=== PATIENT | female | born 1950 | race African-American/Black ===

== ENCOUNTER 2019-08-31 18:10 | Inpatient (IN) | payer OTHER ==
[~2019-08-31] VITALS: Ht 167.6 cm; Wt 69.6 kg
[~2019-08-31 18:10] MED LIST: INSULIN LISPRO (HIGH DOSE) 100 UNITS/ML SUBCUT SCH
[2019-08-31] MEDS ORDERED: ALBUTEROL (0.083%) 2.5MG/3ML NEB HHN STA (18:56)
[2019-08-31] MEDS ORDERED: SODIUM CHLORIDE 0.9% 1,000 ML IV ONE (18:56)
[2019-08-31] MEDS ORDERED: IPRATROPIUM BROMIDE (0.02%) 0.5MG/2.5ML NEB HHN STA (18:56)
[2019-08-31] MEDS ORDERED: NOREPINEPHRINE 4 MG in DEXT 5% WATER 246 ML IV ONE (19:30)
[2019-08-31 19:42] LABS: BASOPHILS % 0.7 % (0.0-2.0); HEMATOCRIT. 29.8 % (36.0-48.0); HEMOGLOBIN. 10.3 g/dL (12.0-16.0); LYMPHOCYTES % 17.4 % (20.0-50.0); MEAN CORPUSCULAR HEMOGLOBIN 34.3 pg (28.0-32.0); MEAN CORPUSCULAR VOLUME 99.3 fL (81.0-99.0); MEAN PLATELET VOLUME 9.6 fl (7.4-10.4); MONOCYTES % 8.9 % (2.0-8.0); PLATELET 191 x1000/uL (130-400)
[2019-08-31] MEDS ORDERED: NOREPINEPHRINE 4MG/250ML PMX 250 ML IV NR (19:45)
[2019-08-31 19:46] LABS: CHLORIDE 99 mEq/L (98-107)
[2019-08-31 20:10] LABS: BG BASE EXCESS -4.6 mmol/L (-2.0-2.0); BG BILEVEL POS AIRWAY PRESSURE S/T: 16/5; BG FRACTION INSPIRED OXYGEN 60; BG HCO3 ACT 18.7 mmol/L (22.0-26.0); BG PCO2 30.2 mmHg (35.0-45.0); BG PH 7.409 (7.350-7.450); BG PO2 46.5 mmHg (75.0-100.0); BG SAMPLE SITE RIGHT RADIAL; BG VENT MODE MASK - BIPAP; BG VENT RATE 18 set
[2019-08-31 20:22] LABS: INR 1.1; PROTHROMBIN TIME 11.4 sec (9.6-11.0)
[2019-08-31] MEDS ORDERED: VANCOMYCIN 1 G PREMIX 200 ML IV SCH ×2 (21:15→22:00)
[2019-08-31] MEDS ORDERED: INSULIN REGULAR (HUMULIN R) 300UNITS/3ML SUBCUT NR (21:15)
[2019-08-31] MEDS ORDERED: PIPERACILLIN/TAZOBACTAM 3.375GM/50ML PREMIX IV ONE (21:15)
[2019-08-31 21:21] LABS: CLARITY URINE CLEAR (CLEAR); COLOR URINE YELLOW (YELLOW); KETONES URINE NEGATIVE (NEGATIVE); LEUKOCYTE ESTERASE URINE NEGATIVE (NEGATIVE); NITRITE URINE NEGATIVE (NEGATIVE); OCCULT BLOOD URINE NEGATIVE (NEGATIVE); PH URINE >=9.0 (4.5-8.0); PROTEIN URINE 2+ (NEGATIVE); SPECIFIC GRAVITY URINE 1.011 (1.005-1.030); UROBILINOGEN URINE 0.2 E.U./dL (0.2-1.0)
[2019-08-31] MEDS ORDERED: PIPERACILLIN/TAZ 3.375G PREMIX 50 ML IV NR (21:30)
[2019-08-31] MEDS ORDERED: CLONIDINE 0.1MG TABLET PO PRN (22:30)
[2019-08-31] MEDS ORDERED: GUAIFENESIN 200MG/10ML SUGAR FREE UDC PO PRN (22:30)
[2019-08-31] MEDS ORDERED: ACETAMINOPHEN 325MG TABLET PO PRN (22:30)
[2019-08-31] MEDS ORDERED: IPRATROPIUM/ALBUTEROL 0.5-3(2.5)MG/3ML NEB NEB PRN (22:30)
[2019-08-31] MEDS ORDERED: ONDANSETRON HCL 4MG/2ML INJ IV PRN (22:30)
[2019-08-31] MEDS ORDERED: DOCUSATE SODIUM 100MG CAPSULE PO PRN (22:30)
[2019-08-31] MEDS ORDERED: PIPERACILLIN/TAZ 3.375G PREMIX 50 ML IV SCH (22:30)
[2019-08-31] MEDS ORDERED: HYDROCODONE/ACETAMINOPHEN 5/325MG TABLET PO PRN (22:30)
[2019-08-31] MEDS ORDERED: DEXTROSE 50% WATER 50ML SYRINGE IV PRN (23:45)
[2019-09-01] VITALS (50 sets, daily range): BP systolic 106–151; BP diastolic 35–74
[2019-09-01] MEDS ORDERED: INSULIN LISPRO (HIGH DOSE) 100 UNITS/ML SUBCUT SCH
[2019-09-01] MEDS ORDERED: BLOOD SUGAR DIAGNOSTIC STRIP TEST SCH
[2019-09-01 05:30] LABS: HEMATOCRIT. 30.8 % (36.0-48.0); HEMOGLOBIN. 10.7 g/dL (12.0-16.0); MEAN CORPUSCULAR HEMOGLOBIN 34.1 pg (28.0-32.0); MEAN CORPUSCULAR VOLUME 98.1 fL (81.0-99.0); MEAN PLATELET VOLUME 9.8 fl (7.4-10.4); PLATELET 188 x1000/uL (130-400); RED BLOOD CELL COUNT 3.14 mill/uL (4.2-5.4); RED CELL DISTRIBUTION WIDTH 14.9 % (11.6-14.6)
[2019-09-01 05:43] LABS: LDL CHOLESTEROL 55 mg/dL (5-100)
[2019-09-01 05:44] LABS: CREATINE KINASE 61 IU/L (26-192); HDL CHOLESTEROL 124 mg/dL (40-59)
[2019-09-01 05:46] LABS: CREATINE KINASE MB FRACTION < 1.0 ng/mL (0.5-3.6)
[2019-09-01] MEDS: BLOOD SUGAR DIAGNOSTIC STRIP TEST SCH ×4 (06:18→21:00)
[2019-09-01] MEDS: PIPERACILLIN/TAZOBACTAM 2.25 G in DEXTROSE 5% WATER 50 ML IV SCH ×3 (06:21→18:46)
[2019-09-01] MEDS: INSULIN LISPRO 100 UNITS/ML SUBCUT SCH ×4 (06:22→22:58)
[2019-09-01 08:25] LABS: PLATELET ESTIMATE NORMAL
[2019-09-01] MEDS: HEPARIN 5000 UNITS/ML VIAL SUBCUT SCH ×2 (08:35→22:19)
[2019-09-01] MEDS: ASPIRIN 81MG EC TABLET PO SCH ×2 (08:35→08:58)
[2019-09-01 09:45] LABS: *BARBITURATES SCREEN URINE NEGATIVE (NEGATIVE); *BENZODIAZEPINES SCREEN URINE NEGATIVE (NEGATIVE); *COCAINE SCREEN URINE NEGATIVE (NEGATIVE); METHADONE URINE SCREEN NEGATIVE (NEGATIVE)
[2019-09-01 09:46] LABS: *AMPHETAMINES SCREEN URINE NEGATIVE (NEGATIVE); CANNABINOID URINE SCREEN NEGATIVE (NEGATIVE); OPIATES URINE SCREEN NEGATIVE (NEGATIVE); PHENCYCLIDINE URINE SCREEN NEGATIVE (NEGATIVE)
[2019-09-01] MEDS ORDERED: VANCOMYCIN 500 MG PREMIX 100 ML IV NR (12:00)
[2019-09-01 12:58] LABS: BG BASE EXCESS -1.2 mmol/L (-2.0-2.0); BG CARBOXYHEMOGLOBIN 0.3 % (0.5-1.5); BG DEOXYHEMOGLOBIN 0.6 % (0.0-5.0); BG FRACTION INSPIRED OXYGEN 100; BG METHEMOGLOBIN 0.4 % (0.0-1.5); BG OXYGEN SATURATION 99.4 % (92.0-98.5); BG OXYHEMOGLOBIN 98.7 % (94.0-97.0); BG PH 7.508 (7.350-7.450); BG PO2 434.8 mmHg (75.0-100.0); BG SAMPLE SITE RIGHT RADIAL; BG TOTAL HEMOGLOBIN 10.5 g/dL (12.0-18.0); BG VENT MODE MASK - NRB
[2019-09-01] MEDS ORDERED: SODIUM CHLORIDE 3% FOR INH 4ML UD NEB INH NR (14:00)
[2019-09-01] MEDS: IPRATROPIUM/ALBUTEROL 0.5-3(2.5)MG/3ML NEB HHN SCH ×2 (14:09→20:49)
[2019-09-01] MEDS ORDERED: HYDR100T26 MT (14:17)
[2019-09-01] MEDS ORDERED: ALBU6.7H11 INH (14:17)
[2019-09-01] MEDS ORDERED: AMLO10TA80 PO (14:17)
[2019-09-01] MEDS ORDERED: ESOM20CA PO (14:17)
[2019-09-01] MEDS ORDERED: AZAT50TA18 PO (14:17)
[2019-09-01] MEDS ORDERED: LUTE1CAP5 MT (14:17)
[2019-09-01] MEDS ORDERED: FOLI0.4T2 PO (14:17)
[2019-09-01] MEDS ORDERED: INSU100I28 SQ (14:17)
[2019-09-01] MEDS ORDERED: NEPVIT MT (14:17)
[2019-09-01] MEDS ORDERED: ALBU6.7H9 INH (14:17)
[2019-09-01] MEDS ORDERED: MONT10TA21 MT (14:17)
[2019-09-01] MEDS ORDERED: FURO80TA87 MT (14:17)
[2019-09-01] MEDS ORDERED: INSLIS SUBCUT (14:17)
[2019-09-01] MEDS ORDERED: ATOR10TA69 PO (14:17)
[2019-09-01] MEDS ORDERED: DOCU50CA11 MT (14:17)
[2019-09-01] MEDS ORDERED: METO25TA6 MT (14:17)
[2019-09-01] MEDS ORDERED: PRED5TAB PO (14:17)
[2019-09-01] MEDS ORDERED: TOPUD PO (14:17)
[2019-09-01 15:44] LABS: CREATINE KINASE 112 IU/L (26-192)
[2019-09-01] MEDS ORDERED: IOHEXOL-350 100 ML BOTTLE ONE (15:44)
[2019-09-01 15:45] LABS: CREATINE KINASE MB FRACTION < 1.0 ng/mL (0.5-3.6)
[2019-09-01] MEDS ORDERED: INSULIN LISPRO 100 UNITS/ML SUBCUT SCH (16:30)
[2019-09-01] MEDS ORDERED: MONTELUKAST SODIUM 10MG TABLET PO SCH (17:00)
[2019-09-01] MEDS: HYDRALAZINE HCL 100MG TABLET PO SCH (17:00)
[2019-09-01] MEDS ORDERED: PREDNISONE 5MG TABLET PO SCH (18:15)
[2019-09-01] MEDS ORDERED: ATORVASTATIN CALCIUM 10MG TABLET PO SCH (21:00)
[2019-09-01] MEDS ORDERED: AMLODIPINE 10MG TABLET PO SCH (21:00)
[2019-09-01] MEDS ORDERED: INSULIN GLARGINE UD 100 UNITS/ML SYR SUBCUT SCH (22:00)
[2019-09-01] MEDS: METOPROLOL TARTRATE 25MG TABLET PO SCH (22:18)
[2019-09-01] MEDS: OMEPRAZOLE 20MG CAPSULE EXTENDED RELEASE PO SCH (22:18)
[2019-09-02] VITALS (26 sets, daily range): BP systolic 124–152; BP diastolic 45–94
[2019-09-02] MEDS: IPRATROPIUM/ALBUTEROL 0.5-3(2.5)MG/3ML NEB HHN SCH ×2 (01:43→08:16)
[2019-09-02 05:39] LABS: BASOPHILS % 0.7 % (0.0-2.0); EOSINOPHILS % 0.1 % (0.0-5.0); HEMATOCRIT. 28.5 % (36.0-48.0); HEMOGLOBIN. 9.9 g/dL (12.0-16.0); LYMPHOCYTES % 7.6 % (20.0-50.0); MEAN CORPUSCULAR HEMOGLOBIN 34.3 pg (28.0-32.0); MEAN CORPUSCULAR VOLUME 98.4 fL (81.0-99.0); MEAN PLATELET VOLUME 9.8 fl (7.4-10.4); NEUTROPHILS % 82.6 % (40.0-76.0); PLATELET 179 x1000/uL (130-400); RED BLOOD CELL COUNT 2.89 mill/uL (4.2-5.4); RED CELL DISTRIBUTION WIDTH 14.7 % (11.6-14.6)
[2019-09-02 05:53] LABS: PHOSPHORUS 4.3 mg/dL (2.5-4.9)
[2019-09-02 06:06] LABS: CORTISOL 6.9 ucg/dL; HEPATITIS B SURFACE AB 104.3 mIU/mL
[2019-09-02] MEDS: PIPERACILLIN/TAZOBACTAM 2.25 G in DEXTROSE 5% WATER 50 ML IV SCH ×2 (06:36→13:41)
[2019-09-02] MEDS: BLOOD SUGAR DIAGNOSTIC STRIP TEST SCH ×2 (06:37→11:33)
[2019-09-02] MEDS: INSULIN LISPRO 100 UNITS/ML SUBCUT SCH ×4 (06:48→11:52)
[2019-09-02] MEDS: OMEPRAZOLE 20MG CAPSULE EXTENDED RELEASE PO SCH (06:53)
[2019-09-02] MEDS: METOPROLOL TARTRATE 25MG TABLET PO SCH (07:52)
[2019-09-02] MEDS: HYDRALAZINE HCL 100MG TABLET PO SCH ×2 (07:53→13:41)
[2019-09-02] MEDS: ASPIRIN 81MG EC TABLET PO SCH (07:54)
[2019-09-02] MEDS: HEPARIN 5000 UNITS/ML VIAL SUBCUT SCH (07:55)
[2019-09-02] MEDS ORDERED: AMLODIPINE 10MG TABLET PO SCH (09:00)
[2019-09-02] MEDS ORDERED: PREDNISONE 5MG TABLET PO SCH (09:00)
[2019-09-02] MEDS ORDERED: FOLIC ACID 1MG TABLET PO SCH (09:00)
[2019-09-02] MEDS ORDERED: AZATHIOPRINE 50MG TABLET PO SCH (09:00)
[2019-09-02] MEDS ORDERED: FUROSEMIDE 40MG TABLET PO SCH (09:00)
== END 2019-09-02 15:36 | disposition home or self-care (01) | DRG 871 ==
LOC: ER 18:10 → MICUSO 22:02 → EDBEDREQTM 22:13 → EDBEDREQ 22:13 → ENRESERV 23:40
PROVIDERS: ADMIT Internal Medicine; ATTEND Internal Medicine
PROC: 5A09357 Assistance with Respiratory Ventilation, Less than 24 Consecutive Hours, Continuous Positive Airway Pressure (ICD-10-PCS; 2019-08-31)
PROC: 5A1D70Z Performance of Urinary Filtration, Intermittent, Less than 6 Hours Per Day (ICD-10-PCS; principal; 2019-09-01)
PROC: 5A09357 Assistance with Respiratory Ventilation, Less than 24 Consecutive Hours, Continuous Positive Airway Pressure (ICD-10-PCS; 2019-09-01)
DX: A41.9 Sepsis, unspecified organism (principal); J96.01 Acute respiratory failure with hypoxia; N18.6 End stage renal disease; J44.1 Chronic obstructive pulmonary disease with (acute) exacerbation; N25.81 Secondary hyperparathyroidism of renal origin; E87.2 Acidosis; I13.2 Hypertensive heart and chronic kidney disease with heart failure and with stage 5 chronic kidney disease, or end stage renal disease; R65.20 Severe sepsis without septic shock; J45.909 Unspecified asthma, uncomplicated; Z96.653 Presence of artificial knee joint, bilateral; E11.65 Type 2 diabetes mellitus with hyperglycemia; M19.90 Unspecified osteoarthritis, unspecified site; D53.9 Nutritional anemia, unspecified; I50.9 Heart failure, unspecified; I95.9 Hypotension, unspecified; E11.22 Type 2 diabetes mellitus with diabetic chronic kidney disease; M05.10 Rheumatoid lung disease with rheumatoid arthritis of unspecified site; Z79.52 Long term (current) use of systemic steroids; Z99.2 Dependence on renal dialysis; Z79.4 Long term (current) use of insulin; Z79.899 Other long term (current) drug therapy; Z82.49 Family history of ischemic heart disease and other diseases of the circulatory system; Z83.3 Family history of diabetes mellitus; Z88.8 Allergy status to other drugs, medicaments and biological substances
CPT/HCPCS: 36415; 36600; 71045; 71275; 80048; 80053; 80061; 80305; 81003; 82375; 82533; 82550; 82553; 82805; 82962; 83036; 83605; 83735; 83880; 84100; 84145; 84443; 84484; 85025; 86705; 86706; 86803; 87340; 93005; 93306; 93970; 94640; 94644; 94660; 99291; J1644; J1815; J2543; J3370; J3490; J7030; J7060; J7500; J7512; Q9967

== ENCOUNTER 2019-09-19 17:39 | Inpatient (IN) | payer OTHER ==
[~2019-09-19] VITALS: Ht 162.6 cm; Wt 61.2 kg
[~2019-09-19 17:39] MED LIST changes: +ALBU6.7H11 INH; +ALBU6.7H9 INH; +AMLO10TA80 PO; +ATOR10TA69 PO; +AZAT50TA18 PO; +DOCU50CA11 MT; +ESOM20CA PO; +FOLI0.4T2 PO; +FURO80TA87 MT; +HYDR100T26 MT; +INSLIS SUBCUT; +INSU100I28 SQ; -INSULIN LISPRO (HIGH DOSE) 100 UNITS/ML SUBCUT SCH; +LUTE1CAP5 MT; +METO25TA6 MT; +MONT10TA21 MT; +NEPVIT MT; +PRED5TAB PO; +TOPUD PO
[2019-09-19] MEDS ORDERED: IPRATROPIUM BROMIDE (0.02%) 0.5MG/2.5ML NEB HHN STA (17:59)
[2019-09-19] MEDS ORDERED: ALBUTEROL (0.083%) 2.5MG/3ML NEB HHN STA (17:59)
[2019-09-19] MEDS ORDERED: METHYLPREDNISOLONE SOD SUCC 125 MG/2 ML VIAL IV STA (17:59)
[2019-09-19] MEDS ORDERED: MAGNESIUM 2 G PREMIX 50 ML IV ONE (18:00)
[2019-09-19 18:35] LABS: BASOPHILS % 0.6 % (0.0-2.0); EOSINOPHILS % 0.2 % (0.0-5.0); HEMATOCRIT. 36.3 % (36.0-48.0); HEMOGLOBIN. 12.6 g/dL (12.0-16.0); LYMPHOCYTES % 9.9 % (20.0-50.0); MEAN CORPUSCULAR VOLUME 98.3 fL (81.0-99.0); MONOCYTES % 6.9 % (2.0-8.0); NEUTROPHILS % 82.4 % (40.0-76.0); PLATELET 244 x1000/uL (130-400); RED BLOOD CELL COUNT 3.69 mill/uL (4.2-5.4); RED CELL DISTRIBUTION WIDTH 15.1 % (11.6-14.6)
[2019-09-19 18:40] LABS: CHLORIDE 93 mEq/L (98-107)
[2019-09-19] MEDS ORDERED: FUROSEMIDE 100MG/10ML VIAL IVP ONE (19:45)
[2019-09-19 20:36] LABS: BG BASE EXCESS -4.8 mmol/L (-2.0-2.0); BG CARBOXYHEMOGLOBIN 0.3 % (0.5-1.5); BG DEOXYHEMOGLOBIN 1.9 % (0.0-5.0); BG FRACTION INSPIRED OXYGEN 28; BG HCO3 ACT 17.6 mmol/L (22.0-26.0); BG METHEMOGLOBIN 0.5 % (0.0-1.5); BG OXYGEN SATURATION 98.1 % (92.0-98.5); BG OXYHEMOGLOBIN 97.3 % (94.0-97.0); BG PCO2 25.2 mmHg (35.0-45.0); BG PH 7.461 (7.350-7.450); BG PO2 121.4 mmHg (75.0-100.0); BG SAMPLE SITE RIGHT RADIAL; BG TOTAL HEMOGLOBIN 11.6 g/dL (12.0-18.0); BG VENT MODE NASAL CANNULA
[2019-09-19] MEDS ORDERED: INSULIN LISPRO (HIGH DOSE) 100 UNITS/ML SUBCUT NR (22:30)
[2019-09-19 22:35] VITALS: BP 142/45
[2019-09-19] MEDS ORDERED: HYDROCODONE/ACETAMINOPHEN 5/325MG TABLET PO PRN (22:45)
[2019-09-19] MEDS ORDERED: ONDANSETRON HCL 4MG/2ML INJ IV PRN (22:45)
[2019-09-19] MEDS ORDERED: ACETAMINOPHEN 325MG TABLET PO PRN (22:45)
[2019-09-19] MEDS ORDERED: IPRATROPIUM/ALBUTEROL 0.5-3(2.5)MG/3ML NEB NEB PRN (22:45)
[2019-09-19] MEDS ORDERED: DOCUSATE SODIUM 100MG CAPSULE PO PRN (22:45)
[2019-09-19] MEDS ORDERED: CLONIDINE 0.1MG TABLET PO PRN (22:45)
[2019-09-19] MEDS ORDERED: DEXTROSE 50% WATER 50ML SYRINGE IV PRN (23:30)
[2019-09-20] VITALS: BP 120/38
[2019-09-20] MEDS: INSULIN LISPRO 100 UNITS/ML SUBCUT SCH ×8 (00:09→21:28)
[2019-09-20] MEDS: INSULIN GLARGINE UD 100 UNITS/ML SYR SUBCUT SCH ×2 (00:13→22:11)
[2019-09-20 02:47] LABS: *AMPHETAMINES SCREEN URINE NEGATIVE (NEGATIVE); *BARBITURATES SCREEN URINE NEGATIVE (NEGATIVE); *BENZODIAZEPINES SCREEN URINE NEGATIVE (NEGATIVE); *COCAINE SCREEN URINE NEGATIVE (NEGATIVE); CANNABINOID URINE SCREEN NEGATIVE (NEGATIVE); OPIATES URINE SCREEN NEGATIVE (NEGATIVE); PHENCYCLIDINE URINE SCREEN NEGATIVE (NEGATIVE)
[2019-09-20 02:48] LABS: METHADONE URINE SCREEN NEGATIVE (NEGATIVE)
[2019-09-20 04:00] VITALS: BP 114/41
[2019-09-20 04:58] LABS: EOSINOPHILS % 0.4 % (0.0-5.0); HEMATOCRIT. 28.7 % (36.0-48.0); HEMOGLOBIN. 10.1 g/dL (12.0-16.0); LYMPHOCYTES % 12.5 % (20.0-50.0); MEAN PLATELET VOLUME 8.8 fl (7.4-10.4); MONOCYTES % 13.4 % (2.0-8.0); NEUTROPHILS % 72.7 % (40.0-76.0); PLATELET 217 x1000/uL (130-400); RED BLOOD CELL COUNT 2.96 mill/uL (4.2-5.4); RED CELL DISTRIBUTION WIDTH 14.7 % (11.6-14.6)
[2019-09-20 05:48] LABS: CHLORIDE 95 mEq/L (98-107)
[2019-09-20] MEDS ORDERED: METHYLPREDNISOLONE SOD SUCC 40 MG/ML VIAL IV SCH (06:00)
[2019-09-20 06:08] LABS: CREATINE KINASE 85 IU/L (26-192); HDL CHOLESTEROL 128 mg/dL (40-59); LDL CHOLESTEROL 57 mg/dL (5-100)
[2019-09-20 06:10] LABS: CREATINE KINASE MB FRACTION < 1.0 ng/mL (0.5-3.6)
[2019-09-20] MEDS: BLOOD SUGAR DIAGNOSTIC STRIP TEST SCH ×4 (07:40→21:26)
[2019-09-20 08:00] VITALS: BP 120/44
[2019-09-20] MEDS: HEPARIN 5000 UNITS/ML VIAL SUBCUT SCH ×2 (08:31→21:26)
[2019-09-20] MEDS: BUDESONIDE 0.5MG/2ML NEB HHN SCH ×2 (09:00→23:00)
[2019-09-20 12:00] VITALS: BP_SYST 105; BP_SYST 122; BP_DIAS 42; BP_DIAS 50
[2019-09-20 15:41] LABS: CREATINE KINASE 103 IU/L (26-192)
[2019-09-20 15:42] LABS: CREATINE KINASE MB FRACTION < 1.0 ng/mL (0.5-3.6)
[2019-09-20 16:00] VITALS: BP 125/74
[2019-09-20] MEDS: AMLODIPINE 10MG TABLET PO SCH (16:00)
[2019-09-20] MEDS: MONTELUKAST SODIUM 10MG TABLET PO SCH (16:27)
[2019-09-20] MEDS: ATORVASTATIN CALCIUM 10MG TABLET PO SCH (16:27)
[2019-09-20] MEDS: FOLIC ACID/VITAMIN B COMP W-C TABLET PO SCH (16:27)
[2019-09-20] MEDS: HYDRALAZINE HCL 100MG TABLET PO SCH (16:28)
[2019-09-20] MEDS: AZATHIOPRINE 50MG TABLET PO SCH (16:28)
[2019-09-20] MEDS ORDERED: SENNOSIDES 8.6MG TABLET PO PRN (17:45)
[2019-09-20 20:00] VITALS: BP 135/49
[2019-09-20] MEDS ORDERED: FAMOTIDINE 20MG TABLET PO SCH (21:00)
[2019-09-20] MEDS ORDERED: DOCUSATE SODIUM 100MG CAPSULE PO SCH (21:00)
[2019-09-20] MEDS: FLUTICASONE PROPIONATE 50MCG/SPRAY BOTTLE BOTHNSTRLS SCH (21:26)
[2019-09-21] VITALS: BP 137/55
[2019-09-21 04:00] VITALS: BP 144/52
[2019-09-21] MEDS: BLOOD SUGAR DIAGNOSTIC STRIP TEST SCH ×3 (06:29→17:40)
[2019-09-21 07:13] LABS: CHLORIDE 97 mEq/L (98-107)
[2019-09-21 07:16] LABS: BASOPHILS % 0.6 % (0.0-2.0); EOSINOPHILS % 0.6 % (0.0-5.0); HEMATOCRIT. 30.6 % (36.0-48.0); HEMOGLOBIN. 10.6 g/dL (12.0-16.0); LYMPHOCYTES % 14.7 % (20.0-50.0); MEAN CORPUSCULAR HEMOGLOBIN 33.7 pg (28.0-32.0); MEAN CORPUSCULAR VOLUME 97.2 fL (81.0-99.0); MEAN PLATELET VOLUME 9.5 fl (7.4-10.4); MONOCYTES % 8.8 % (2.0-8.0); NEUTROPHILS % 75.3 % (40.0-76.0); PLATELET 237 x1000/uL (130-400); RED BLOOD CELL COUNT 3.15 mill/uL (4.2-5.4); RED CELL DISTRIBUTION WIDTH 15.4 % (11.6-14.6)
[2019-09-21 07:20] LABS: PHOSPHORUS 4.6 mg/dL (2.5-4.9)
[2019-09-21] MEDS: FOLIC ACID/VITAMIN B COMP W-C TABLET PO SCH (07:59)
[2019-09-21 08:00] VITALS: BP 141/53
[2019-09-21] MEDS: AZATHIOPRINE 50MG TABLET PO SCH (08:00)
[2019-09-21] MEDS: INSULIN LISPRO 100 UNITS/ML SUBCUT SCH ×5 (08:00→17:40)
[2019-09-21] MEDS: HEPARIN 5000 UNITS/ML VIAL SUBCUT SCH (08:02)
[2019-09-21] MEDS: HYDRALAZINE HCL 100MG TABLET PO SCH ×3 (08:27→17:00)
[2019-09-21] MEDS: AMLODIPINE 10MG TABLET PO SCH (08:27)
[2019-09-21] MEDS: FLUTICASONE PROPIONATE 50MCG/SPRAY BOTTLE BOTHNSTRLS SCH (08:57)
[2019-09-21] MEDS ORDERED: PREDNISONE 5MG TABLET PO SCH (09:00)
[2019-09-21 09:30] VITALS: BP 162/46
[2019-09-21 12:00] VITALS: BP 142/63
[2019-09-21] MEDS: ATORVASTATIN CALCIUM 10MG TABLET PO SCH (13:03)
[2019-09-21] MEDS ORDERED: FAMO20TA8 PO (15:16)
[2019-09-21] MEDS ORDERED: FLUT9.9S BOTHNSTRLS (15:16)
[2019-09-21 16:00] VITALS: BP 121/52
[2019-09-21] MEDS: MONTELUKAST SODIUM 10MG TABLET PO SCH (17:00)
== END 2019-09-21 17:54 | disposition home or self-care (01) | DRG 189 ==
LOC: ER 17:39 → EDBEDREQTM 19:55 → EDBEDREQ 19:55 → ENRESERV 21:18 → 7WST 22:36
PROVIDERS: ADMIT Internal Medicine; ATTEND Internal Medicine
PROC: 5A1D70Z Performance of Urinary Filtration, Intermittent, Less than 6 Hours Per Day (ICD-10-PCS; principal; 2019-09-20)
DX: J96.01 Acute respiratory failure with hypoxia (principal); N18.6 End stage renal disease; J44.0 Chronic obstructive pulmonary disease with (acute) lower respiratory infection; I12.0 Hypertensive chronic kidney disease with stage 5 chronic kidney disease or end stage renal disease; D63.1 Anemia in chronic kidney disease; D72.810 Lymphocytopenia; E11.22 Type 2 diabetes mellitus with diabetic chronic kidney disease; E11.43 Type 2 diabetes mellitus with diabetic autonomic (poly)neuropathy; E78.5 Hyperlipidemia, unspecified; J20.9 Acute bronchitis, unspecified; K31.84 Gastroparesis; D72.821 Monocytosis (symptomatic); E11.65 Type 2 diabetes mellitus with hyperglycemia; E78.00 Pure hypercholesterolemia, unspecified; E21.3 Hyperparathyroidism, unspecified; M05.10 Rheumatoid lung disease with rheumatoid arthritis of unspecified site; M06.30 Rheumatoid nodule, unspecified site; J30.2 Other seasonal allergic rhinitis; Z95.820 Peripheral vascular angioplasty status with implants and grafts; Z83.3 Family history of diabetes mellitus; Z82.49 Family history of ischemic heart disease and other diseases of the circulatory system; Z99.2 Dependence on renal dialysis; Z79.52 Long term (current) use of systemic steroids; Z79.4 Long term (current) use of insulin; Z79.899 Other long term (current) drug therapy
CPT/HCPCS: 36415; 36600; 71045; 80048; 80053; 80061; 80305; 82375; 82550; 82553; 82805; 82962; 83036; 83735; 83880; 84100; 84484; 85025; 93005; 94640; 99285; J1644; J1815; J1940; J2920; J2930; J3475; J7500; J7512; J7626

== ENCOUNTER 2019-09-28 17:15 | Emergency (ER) | payer OTHER ==
[~2019-09-28] VITALS: Ht 170.2 cm; Wt 72.0 kg
[~2019-09-28 17:15] MED LIST changes: -ALBU6.7H9 INH; -ESOM20CA PO; +FAMO20TA8 PO; +FLUT9.9S BOTHNSTRLS; -FOLI0.4T2 PO; -LUTE1CAP5 MT
[2019-09-28] MEDS ORDERED: ONDANSETRON HCL 4MG/2ML INJ IV STA (18:14)
[2019-09-28] MEDS ORDERED: METOCLOPRAMIDE HCL 10MG/2ML VIAL IV STA (18:14)
[2019-09-28] MEDS ORDERED: SODIUM CHLORIDE 0.9% 1000ML BAG (SEPSIS BOLUS) IV ONE (18:15)
[2019-09-28 19:26] LABS: HEMATOCRIT. 41.1 % (36.0-48.0); HEMOGLOBIN. 14.1 g/dL (12.0-16.0); MEAN CORPUSCULAR HEMOGLOBIN 33.7 pg (28.0-32.0); MEAN CORPUSCULAR VOLUME 98.4 fL (81.0-99.0); MEAN PLATELET VOLUME 8.6 fl (7.4-10.4); PLATELET 204 x1000/uL (130-400); RED BLOOD CELL COUNT 4.18 mill/uL (4.2-5.4); RED CELL DISTRIBUTION WIDTH 14.8 % (11.6-14.6)
[2019-09-28 19:28] LABS: CHLORIDE 94 mEq/L (98-107); PROTHROMBIN TIME 10.7 sec (9.6-11.0)
[2019-09-28 19:32] LABS: ETHANOL BLOOD < 10 mg/dL
[2019-09-28 20:16] LABS: PLATELET ESTIMATE NORMAL
[2019-09-28 20:45] VITALS: BP 135/74
== END 2019-09-28 20:45 | disposition home or self-care (01) ==
LOC: ER 17:15 → CANBEDREQ 21:08
DX: R10.13 Epigastric pain (principal); J44.9 Chronic obstructive pulmonary disease, unspecified; I12.0 Hypertensive chronic kidney disease with stage 5 chronic kidney disease or end stage renal disease; N18.6 End stage renal disease; E78.00 Pure hypercholesterolemia, unspecified; Z88.6 Allergy status to analgesic agent; Z88.8 Allergy status to other drugs, medicaments and biological substances; Z79.899 Other long term (current) drug therapy; Z79.4 Long term (current) use of insulin; Z98.890 Other specified postprocedural states; Z99.2 Dependence on renal dialysis; Z91.15 Patient's noncompliance with renal dialysis
CPT/HCPCS: 36415; 71045; 74176; 80053; 80320; 83690; 83880; 84484; 85025; 85610; 93005; 96361; 96374; 96375; 99285; J2405; J2765; J7030; G0480

== ENCOUNTER 2020-01-13 17:45 | Inpatient (IN) | payer OTHER ==
[~2020-01-13] VITALS: Ht 167.6 cm; Wt 53.1 kg
[2020-01-13] MEDS ORDERED: CALCIUM GLUCONATE 100MG/ML 10ML VIAL IV ONE (18:30)
[2020-01-13 19:54] LABS: BASOPHILS % 0.5 % (0.0-2.0); EOSINOPHILS % 0.1 % (0.0-5.0); HEMOGLOBIN. 12.5 g/dL (12.0-16.0); LYMPHOCYTES % 7.2 % (20.0-50.0); MEAN CORPUSCULAR HEMOGLOBIN 33.1 pg (28.0-32.0); MEAN CORPUSCULAR VOLUME 98.3 fL (81.0-99.0); MEAN PLATELET VOLUME 9.3 fl (7.4-10.4); MONOCYTES % 9.2 % (2.0-8.0); PLATELET 166 x1000/uL (130-400); RED BLOOD CELL COUNT 3.77 mill/uL (4.2-5.4); RED CELL DISTRIBUTION WIDTH 14.7 % (11.6-14.6)
[2020-01-13 20:01] LABS: CHLORIDE 96 mEq/L (98-107)
[2020-01-13 23:04] VITALS: BP 159/50
[2020-01-14] VITALS: BP 151/50
[2020-01-14] MEDS ORDERED: DEXTROSE 50% WATER 50ML SYRINGE IV PRN (01:00)
[2020-01-14] MEDS ORDERED: ALBUTEROL 6.7GM HFA INHALER ORI PRN (01:00)
[2020-01-14] MEDS ORDERED: HYDROCODONE/ACETAMINOPHEN 5/325MG TABLET PO PRN (01:00)
[2020-01-14] MEDS ORDERED: ALBUTEROL (0.083%) 2.5MG/3ML NEB HHN PRN (02:15)
[2020-01-14] MEDS: PANTOPRAZOLE 40MG DR TABLET PO SCH ×3 (02:43→21:42)
[2020-01-14] MEDS: INSULIN LISPRO 100 UNITS/ML SUBCUT SCH ×5 (02:51→21:00)
[2020-01-14 05:02] VITALS: BP 131/42
[2020-01-14] MEDS: HYDRALAZINE HCL 100MG TABLET PO SCH ×5 (06:00→21:51)
[2020-01-14] MEDS: BLOOD SUGAR DIAGNOSTIC STRIP TEST SCH ×4 (06:45→21:42)
[2020-01-14 07:16] LABS: PHOSPHORUS 3.9 mg/dL (2.5-4.9)
[2020-01-14 08:00] VITALS: BP 117/41
[2020-01-14 08:09] LABS: HEMATOCRIT. 31.5 % (36.0-48.0); MEAN CORPUSCULAR HEMOGLOBIN 34.2 pg (28.0-32.0); MEAN CORPUSCULAR VOLUME 97.9 fL (81.0-99.0); MEAN PLATELET VOLUME 9.7 fl (7.4-10.4); PLATELET 148 x1000/uL (130-400); RED BLOOD CELL COUNT 3.22 mill/uL (4.2-5.4); RED CELL DISTRIBUTION WIDTH 14.8 % (11.6-14.6)
[2020-01-14] MEDS ORDERED: METOPROLOL TARTRATE 50MG TABLET PO SCH (09:00)
[2020-01-14] MEDS: FUROSEMIDE 40MG TABLET PO SCH (09:03)
[2020-01-14] MEDS: PREDNISONE 5MG TABLET PO SCH (09:03)
[2020-01-14] MEDS: DOCUSATE SODIUM 100MG CAPSULE PO SCH (09:03)
[2020-01-14] MEDS: FOLIC ACID/VITAMIN B COMP W-C TABLET PO SCH (09:03)
[2020-01-14] MEDS: AMLODIPINE 10MG TABLET PO SCH (09:04)
[2020-01-14] MEDS: AZATHIOPRINE 50MG TABLET PO SCH (09:06)
[2020-01-14] MEDS ORDERED: INSULIN GLARGINE UD 100 UNITS/ML SYR SUBCUT SCH ×2 (10:00→22:00)
[2020-01-14] MEDS: ASPIRIN 81MG TABLET PO NR ×2 (11:05→11:13)
[2020-01-14 12:00] VITALS: BP 115/45
[2020-01-14] MEDS ORDERED: IPRATROPIUM/ALBUTEROL 0.5-3(2.5)MG/3ML NEB HHN PRN (13:30)
[2020-01-14 16:00] VITALS: BP 114/43
[2020-01-14 17:02] LABS: PLATELET ESTIMATE NORMAL
[2020-01-14] MEDS: MONTELUKAST SODIUM 10MG TABLET PO SCH (17:33)
[2020-01-14 20:00] VITALS: BP 122/47
[2020-01-14] MEDS: ENOXAPARIN 30MG/0.3ML SYR SUBCUT SCH (20:49)
[2020-01-14] MEDS: METOPROLOL TARTRATE 25MG TABLET PO SCH (21:41)
[2020-01-14] MEDS: ATORVASTATIN CALCIUM 40MG TABLET PO SCH (21:42)
[2020-01-14] MEDS: BUDESONIDE 0.5MG/2ML NEB HHN SCH (21:52)
[2020-01-15] VITALS: BP 118/52
[2020-01-15 04:00] VITALS: BP 130/47
[2020-01-15] MEDS: HYDRALAZINE HCL 100MG TABLET PO SCH ×3 (05:01→22:18)
[2020-01-15] MEDS: PANTOPRAZOLE 40MG DR TABLET PO SCH ×2 (05:58→22:18)
[2020-01-15] MEDS: INSULIN LISPRO 100 UNITS/ML SUBCUT SCH ×4 (06:01→22:32)
[2020-01-15] MEDS: BLOOD SUGAR DIAGNOSTIC STRIP TEST SCH ×4 (06:01→21:00)
[2020-01-15] MEDS ORDERED: MORPHINE SULFATE 2 MG/ML CPJ (NOT FOR IM USE) IV PRN (06:09)
[2020-01-15 07:56] LABS: BASOPHILS % 0.6 % (0.0-2.0); EOSINOPHILS % 0.7 % (0.0-5.0); HEMATOCRIT. 35.2 % (36.0-48.0); HEMOGLOBIN. 12.2 g/dL (12.0-16.0); LYMPHOCYTES % 17.3 % (20.0-50.0); MEAN CORPUSCULAR HEMOGLOBIN 33.8 pg (28.0-32.0); MEAN CORPUSCULAR VOLUME 97.6 fL (81.0-99.0); MEAN PLATELET VOLUME 9.6 fl (7.4-10.4); MONOCYTES % 9.7 % (2.0-8.0); NEUTROPHILS % 71.7 % (40.0-76.0); PLATELET 146 x1000/uL (130-400)
[2020-01-15 08:00] VITALS: BP 129/51
[2020-01-15 08:26] LABS: CHLORIDE 98 mEq/L (98-107)
[2020-01-15] MEDS ORDERED: TRAMADOL 50MG TABLET PO PRN (08:30)
[2020-01-15] MEDS: AMLODIPINE 10MG TABLET PO SCH (08:32)
[2020-01-15] MEDS: DOCUSATE SODIUM 100MG CAPSULE PO SCH (08:32)
[2020-01-15] MEDS: FOLIC ACID/VITAMIN B COMP W-C TABLET PO SCH (08:32)
[2020-01-15 08:33] LABS: PHOSPHORUS 4.6 mg/dL (2.5-4.9)
[2020-01-15] MEDS: FUROSEMIDE 40MG TABLET PO SCH (08:33)
[2020-01-15] MEDS: PREDNISONE 5MG TABLET PO SCH (08:33)
[2020-01-15] MEDS: METOPROLOL TARTRATE 25MG TABLET PO SCH ×2 (08:33→22:19)
[2020-01-15] MEDS: AZATHIOPRINE 50MG TABLET PO SCH (08:33)
[2020-01-15] MEDS: BUDESONIDE 0.5MG/2ML NEB HHN SCH ×2 (08:49→20:56)
[2020-01-15] MEDS ORDERED: ASPIRIN 81MG TABLET PO SCH (09:00)
[2020-01-15] MEDS ORDERED: ENOXAPARIN 40MG/0.4ML SYR SUBCUT SCH (09:00)
[2020-01-15] MEDS ORDERED: CHLORHEXIDINE GLUCONATE 0.12% MOUTHWASH UDC SSP PRN (11:30)
[2020-01-15] MEDS: ACETAMINOPHEN 500MG TABLET PO PRN ×2 (11:55→22:35)
[2020-01-15 12:00] VITALS: BP 136/80
[2020-01-15] MEDS ORDERED: BISACODYL 10MG SUPP PR NR (12:15)
[2020-01-15 16:00] VITALS: BP 117/43
[2020-01-15] MEDS: MONTELUKAST SODIUM 10MG TABLET PO SCH (17:06)
[2020-01-15 20:00] VITALS: BP 148/58
[2020-01-15] MEDS: ATORVASTATIN CALCIUM 40MG TABLET PO SCH (22:18)
[2020-01-15] MEDS: ENOXAPARIN 30MG/0.3ML SYR SUBCUT SCH ×2 (22:18→22:46)
[2020-01-16] VITALS: BP 113/66
[2020-01-16 04:00] VITALS: BP 119/43
[2020-01-16] MEDS: HYDRALAZINE HCL 100MG TABLET PO SCH ×2 (06:48→13:58)
[2020-01-16] MEDS: PANTOPRAZOLE 40MG DR TABLET PO SCH (06:48)
[2020-01-16] MEDS: BLOOD SUGAR DIAGNOSTIC STRIP TEST SCH ×2 (06:50→11:41)
[2020-01-16] MEDS: INSULIN LISPRO 100 UNITS/ML SUBCUT SCH ×2 (06:50→11:46)
[2020-01-16 07:57] VITALS: BP 127/47
[2020-01-16] MEDS: FOLIC ACID/VITAMIN B COMP W-C TABLET PO SCH (08:40)
[2020-01-16] MEDS: DOCUSATE SODIUM 100MG CAPSULE PO SCH (08:40)
[2020-01-16] MEDS: AMLODIPINE 10MG TABLET PO SCH (08:41)
[2020-01-16] MEDS: METOPROLOL TARTRATE 25MG TABLET PO SCH (08:41)
[2020-01-16] MEDS: AZATHIOPRINE 50MG TABLET PO SCH (08:41)
[2020-01-16] MEDS: PREDNISONE 5MG TABLET PO SCH (08:41)
[2020-01-16] MEDS: FUROSEMIDE 40MG TABLET PO SCH (08:41)
[2020-01-16 08:52] LABS: BASOPHILS % 1.2 % (0.0-2.0); EOSINOPHILS % 0.6 % (0.0-5.0); HEMATOCRIT. 34.4 % (36.0-48.0); HEMOGLOBIN. 12.1 g/dL (12.0-16.0); LYMPHOCYTES % 18.4 % (20.0-50.0); MEAN CORPUSCULAR VOLUME 96.5 fL (81.0-99.0); MEAN PLATELET VOLUME 9.8 fl (7.4-10.4); MONOCYTES % 8.7 % (2.0-8.0); NEUTROPHILS % 71.1 % (40.0-76.0); PLATELET 143 x1000/uL (130-400); RED BLOOD CELL COUNT 3.56 mill/uL (4.2-5.4); RED CELL DISTRIBUTION WIDTH 14.4 % (11.6-14.6)
[2020-01-16] MEDS: BUDESONIDE 0.5MG/2ML NEB HHN SCH (09:10)
[2020-01-16 09:30] VITALS: BP 127/47
[2020-01-16 12:00] VITALS: BP 135/47
[2020-01-16] MEDS ORDERED: INSULIN GLARGINE UD 100 UNITS/ML SYR SUBCUT NR (16:00)
== END 2020-01-16 15:31 | disposition home or self-care (01) | DRG 205 ==
LOC: ER 17:45 → 5WST 20:51 → ENRESERV 21:18
PROVIDERS: ADMIT Internal Medicine; ATTEND Internal Medicine
PROC: 5A1D70Z Performance of Urinary Filtration, Intermittent, Less than 6 Hours Per Day (ICD-10-PCS; principal; 2020-01-15)
DX: M94.0 Chondrocostal junction syndrome [Tietze] (principal); J96.00 Acute respiratory failure, unspecified whether with hypoxia or hypercapnia; N18.6 End stage renal disease; I12.0 Hypertensive chronic kidney disease with stage 5 chronic kidney disease or end stage renal disease; E87.1 Hypo-osmolality and hyponatremia; E11.22 Type 2 diabetes mellitus with diabetic chronic kidney disease; M06.9 Rheumatoid arthritis, unspecified; J44.9 Chronic obstructive pulmonary disease, unspecified; R55 Syncope and collapse; K05.10 Chronic gingivitis, plaque induced; E87.8 Other disorders of electrolyte and fluid balance, not elsewhere classified; R00.1 Bradycardia, unspecified; E78.5 Hyperlipidemia, unspecified; E21.3 Hyperparathyroidism, unspecified; K31.84 Gastroparesis; K59.00 Constipation, unspecified; E11.43 Type 2 diabetes mellitus with diabetic autonomic (poly)neuropathy; K21.9 Gastro-esophageal reflux disease without esophagitis; R07.89 Other chest pain; I95.9 Hypotension, unspecified; I07.1 Rheumatic tricuspid insufficiency; D64.9 Anemia, unspecified; Z80.0 Family history of malignant neoplasm of digestive organs; Z82.49 Family history of ischemic heart disease and other diseases of the circulatory system; Z83.3 Family history of diabetes mellitus; Z99.2 Dependence on renal dialysis; Z79.4 Long term (current) use of insulin; Z88.5 Allergy status to narcotic agent; Z88.8 Allergy status to other drugs, medicaments and biological substances; Z79.899 Other long term (current) drug therapy
CPT/HCPCS: 36415; 71045; 80048; 80053; 80061; 82962; 83036; 83735; 83880; 84100; 84484; 85025; 93005; 93306; 94640; 99285; J0610; J1650; J1815; J2270; J7500; J7512; J7626

== ENCOUNTER 2020-02-17 18:36 | Inpatient (IN) | payer OTHER ==
[~2020-02-17] VITALS: Ht 167.6 cm; Wt 57.6 kg
[2020-02-17] MEDS ORDERED: SODIUM CHLORIDE 0.9% 250 ML IV ONE (18:39)
[2020-02-17] MEDS ORDERED: IPRATROPIUM BROMIDE (0.02%) 0.5MG/2.5ML NEB HHN STA (18:39)
[2020-02-17] MEDS ORDERED: ALBUTEROL (0.083%) 2.5MG/3ML NEB HHN STA (18:39)
[2020-02-17] MEDS ORDERED: ASPIRIN 81MG TABLET PO ONE (19:00)
[2020-02-17] MEDS ORDERED: ONDANSETRON HCL 4MG/2ML INJ IV ONE ×2 (19:00)
[2020-02-17] MEDS ORDERED: PIPERACILLIN/TAZOBACTAM 3.375GM/50ML PREMIX IV ONE (19:00)
[2020-02-17 19:19] LABS: BASOPHILS % 0.3 % (0.0-2.0); EOSINOPHILS % 0.1 % (0.0-5.0); HEMATOCRIT. 28.2 % (36.0-48.0); HEMOGLOBIN. 9.6 g/dL (12.0-16.0); LYMPHOCYTES % 21.6 % (20.0-50.0); MEAN CORPUSCULAR HEMOGLOBIN 33.3 pg (28.0-32.0); MEAN CORPUSCULAR VOLUME 98.5 fL (81.0-99.0); MEAN PLATELET VOLUME 9.7 fl (7.4-10.4); MONOCYTES % 6.4 % (2.0-8.0); NEUTROPHILS % 71.6 % (40.0-76.0); PLATELET 244 x1000/uL (130-400); RED BLOOD CELL COUNT 2.87 mill/uL (4.2-5.4)
[2020-02-17 19:23] LABS: CHLORIDE 97 mEq/L (98-107)
[2020-02-17 20:03] LABS: BG BASE EXCESS -1.4 mmol/L (-2.0-2.0); BG BILEVEL POS AIRWAY PRESSURE 15/5; BG CARBOXYHEMOGLOBIN 0.3 % (0.5-1.5); BG DEOXYHEMOGLOBIN 0.5 % (0.0-5.0); BG FRACTION INSPIRED OXYGEN 70; BG HCO3 ACT 20.3 mmol/L (22.0-26.0); BG METHEMOGLOBIN 0.1 % (0.0-1.5); BG OXYGEN SATURATION 99.5 % (92.0-98.5); BG OXYHEMOGLOBIN 99.1 % (94.0-97.0); BG PCO2 24.2 mmHg (35.0-45.0); BG PH 7.542 (7.350-7.450); BG PO2 405.3 mmHg (75.0-100.0); BG SAMPLE SITE RIGHT RADIAL; BG TOTAL HEMOGLOBIN 8.7 g/dL (12.0-18.0); BG VENT MODE MASK - BIPAP; BG VENT RATE 16 set
[2020-02-17 20:44] LABS: D-DIMER 22.41 mg/L FEU (<0.50); INR 1.1; PROTHROMBIN TIME 11.3 sec (9.6-11.0)
[2020-02-17] MEDS ORDERED: ONDANSETRON HCL 4MG/2ML INJ IV PRN (23:45)
[2020-02-17] MEDS ORDERED: CLONIDINE 0.1MG TABLET PO PRN (23:45)
[2020-02-17] MEDS ORDERED: MAGNESIUM/ALUMINUM HYDROXIDE/SIMETHICONE 30ML UDC PO PRN (23:45)
[2020-02-17] MEDS ORDERED: ACETAMINOPHEN 325MG TABLET PO PRN (23:45)
[2020-02-17] MEDS ORDERED: DOCUSATE SODIUM 100MG CAPSULE PO PRN (23:45)
[2020-02-18 00:45] VITALS: BP 129/40
[2020-02-18] MEDS ORDERED: PRED10TA23 MT (02:08)
[2020-02-18 04:00] VITALS: BP 120/56
[2020-02-18 06:18] LABS: CHLORIDE 92 mEq/L (98-107)
[2020-02-18 06:31] LABS: LDL CHOLESTEROL 43 mg/dL (5-100)
[2020-02-18 06:32] LABS: HEMATOCRIT. 22.4 % (36.0-48.0); HEMOGLOBIN. 7.7 g/dL (12.0-16.0); MEAN CORPUSCULAR HEMOGLOBIN 34.2 pg (28.0-32.0); MEAN CORPUSCULAR VOLUME 100.1 fL (81.0-99.0); PLATELET 167 x1000/uL (130-400); RED BLOOD CELL COUNT 2.24 mill/uL (4.2-5.4); RED CELL DISTRIBUTION WIDTH 15.2 % (11.6-14.6)
[2020-02-18 06:33] LABS: CREATINE KINASE 117 IU/L (26-192); HDL CHOLESTEROL 125 mg/dL (40-59)
[2020-02-18 06:36] LABS: CREATINE KINASE MB FRACTION < 1.0 ng/mL (0.5-3.6)
[2020-02-18] MEDS: BLOOD SUGAR DIAGNOSTIC STRIP TEST SCH ×6 (07:25→23:37)
[2020-02-18 07:30] VITALS: BP 134/50
[2020-02-18] MEDS ORDERED: INSULIN LISPRO 100 UNITS/ML SUBCUT SCH ×2 (08:10→08:45)
[2020-02-18 09:32] LABS: *AMPHETAMINES SCREEN URINE NEGATIVE (NEGATIVE); *BARBITURATES SCREEN URINE NEGATIVE (NEGATIVE)
[2020-02-18 09:33] LABS: *BENZODIAZEPINES SCREEN URINE NEGATIVE (NEGATIVE); *COCAINE SCREEN URINE NEGATIVE (NEGATIVE); CANNABINOID URINE SCREEN NEGATIVE (NEGATIVE); METHADONE URINE SCREEN NEGATIVE (NEGATIVE); OPIATES URINE SCREEN NEGATIVE (NEGATIVE); PHENCYCLIDINE URINE SCREEN NEGATIVE (NEGATIVE)
[2020-02-18 12:00] VITALS: BP 116/50
[2020-02-18 13:03] LABS: PLATELET ESTIMATE NORMAL
[2020-02-18] MEDS: FOLIC ACID/VITAMIN B COMP W-C TABLET PO SCH (13:28)
[2020-02-18] MEDS: INSULIN LISPRO 100 UNITS/ML SUBCUT SCH ×3 (13:29→20:16)
[2020-02-18] MEDS ORDERED: PIPERACILLIN/TAZOBACTAM 3.375 G/VIAL IV SCH (14:00)
[2020-02-18] MEDS: PIPERACILLIN/TAZOBACTAM 2.25 G in DEXTROSE 5% WATER 50 ML IV SCH ×2 (14:55→22:20)
[2020-02-18] MEDS ORDERED: INSULIN GLARGINE UD 100 UNITS/ML SYR SUBCUT SCH (15:00)
[2020-02-18 16:54] VITALS: BP 123/51
[2020-02-18] MEDS: MONTELUKAST SODIUM 10MG TABLET PO SCH (17:33)
[2020-02-18 18:06] LABS: BETA HYDROXYBUTYRATE 0.1 mMol/L (0.0-0.3)
[2020-02-18 18:08] LABS: CREATINE KINASE 122 IU/L (26-192)
[2020-02-18 18:10] LABS: CREATINE KINASE MB FRACTION < 1.0 ng/mL (0.5-3.6)
[2020-02-18 18:31] LABS: VITAMIN B12 SERUM 987 pg/mL (211-911)
[2020-02-18 18:38] LABS: FOLIC ACID (FOLATE) SERUM > 20.00 ng/mL (>5.38)
[2020-02-18 18:40] LABS: TOTAL IRON BINDING CAPACITY 236 ug/dL (250-450)
[2020-02-18 18:46] LABS: FERRITIN 2756 ng/mL (10-291)
[2020-02-18] MEDS: ALBUTEROL 6.7GM HFA INHALER ORI SCH (19:30)
[2020-02-18 20:00] VITALS: BP 116/43
[2020-02-18] MEDS: DEXTROSE 50% WATER 50ML SYRINGE IV PRN (20:09)
[2020-02-18] MEDS: FAMOTIDINE 20MG TABLET PO SCH (20:23)
[2020-02-18] MEDS: ATORVASTATIN CALCIUM 10MG TABLET PO SCH (20:23)
[2020-02-18] MEDS: ACETAMINOPHEN 500MG TABLET PO PRN (20:23)
[2020-02-18] MEDS: INSULIN GLARGINE UD 100 UNITS/ML SYR SUBCUT SCH (22:00)
[2020-02-18] MEDS ORDERED: IOHEXOL-350 100 ML BOTTLE ONE (23:36)
[2020-02-19] VITALS: BP 128/47
[2020-02-19] MEDS: BLOOD SUGAR DIAGNOSTIC STRIP TEST SCH ×7 (01:57→20:19)
[2020-02-19] MEDS: DEXTROSE 50% WATER 50ML SYRINGE IV PRN (03:42)
[2020-02-19 04:00] VITALS: BP 127/42
[2020-02-19] MEDS: ACETAMINOPHEN 500MG TABLET PO PRN (04:27)
[2020-02-19] MEDS: PIPERACILLIN/TAZOBACTAM 2.25 G in DEXTROSE 5% WATER 50 ML IV SCH (05:29)
[2020-02-19] MEDS: ALBUTEROL 6.7GM HFA INHALER ORI SCH ×3 (06:00→09:50)
[2020-02-19] MEDS: INSULIN LISPRO 100 UNITS/ML SUBCUT SCH ×4 (07:28→20:35)
[2020-02-19 07:43] LABS: BASOPHILS % 0.3 % (0.0-2.0); EOSINOPHILS % 0.9 % (0.0-5.0); HEMOGLOBIN. 7.9 g/dL (12.0-16.0); LYMPHOCYTES % 8.4 % (20.0-50.0); MEAN PLATELET VOLUME 8.1 fl (7.4-10.4); NEUTROPHILS % 80.4 % (40.0-76.0); PLATELET 159 x1000/uL (130-400); RED CELL DISTRIBUTION WIDTH 15.6 % (11.6-14.6)
[2020-02-19 07:51] LABS: CHLORIDE 108 mEq/L (98-107)
[2020-02-19 07:58] LABS: PHOSPHORUS 3.3 mg/dL (2.5-4.9)
[2020-02-19 08:08] VITALS: BP 131/45
[2020-02-19] MEDS: PREDNISONE 10MG TABLET PO SCH (08:25)
[2020-02-19] MEDS: FOLIC ACID/VITAMIN B COMP W-C TABLET PO SCH (08:25)
[2020-02-19 13:30] VITALS: BP 123/73
[2020-02-19] MEDS: IPRATROPIUM/ALBUTEROL 0.5-3(2.5)MG/3ML NEB NEB PRN (14:52)
[2020-02-19 16:00] VITALS: BP 130/42
[2020-02-19] MEDS: MONTELUKAST SODIUM 10MG TABLET PO SCH (17:53)
[2020-02-19 20:00] VITALS: BP 116/51
[2020-02-19] MEDS: FAMOTIDINE 20MG TABLET PO SCH (20:18)
[2020-02-19] MEDS: ATORVASTATIN CALCIUM 10MG TABLET PO SCH (20:19)
[2020-02-19] MEDS: EPOETIN ALFA 10000UNITS/ML VIAL SUBCUT SCH (20:24)
[2020-02-19] MEDS: ALBUTEROL (0.083%) 2.5MG/3ML NEB HHN SCH (21:00)
[2020-02-19] MEDS: INSULIN GLARGINE UD 100 UNITS/ML SYR SUBCUT SCH (21:26)
[2020-02-20] VITALS: BP 122/58
[2020-02-20] MEDS: ALBUTEROL (0.083%) 2.5MG/3ML NEB HHN SCH ×4 (02:36→21:10)
[2020-02-20 04:00] VITALS: BP 119/59
[2020-02-20 06:32] LABS: BASOPHILS % 0.9 % (0.0-2.0); EOSINOPHILS % 0.8 % (0.0-5.0); HEMATOCRIT. 22.2 % (36.0-48.0); HEMOGLOBIN. 7.8 g/dL (12.0-16.0); LYMPHOCYTES % 10.8 % (20.0-50.0); MEAN CORPUSCULAR HEMOGLOBIN 34.5 pg (28.0-32.0); MEAN CORPUSCULAR VOLUME 98.1 fL (81.0-99.0); MEAN PLATELET VOLUME 9.6 fl (7.4-10.4); MONOCYTES % 9.3 % (2.0-8.0); NEUTROPHILS % 78.2 % (40.0-76.0); PLATELET 162 x1000/uL (130-400); RED BLOOD CELL COUNT 2.27 mill/uL (4.2-5.4); RED CELL DISTRIBUTION WIDTH 15.4 % (11.6-14.6)
[2020-02-20] MEDS: BLOOD SUGAR DIAGNOSTIC STRIP TEST SCH ×4 (06:49→20:44)
[2020-02-20] MEDS: INSULIN LISPRO 100 UNITS/ML SUBCUT SCH ×4 (06:49→20:44)
[2020-02-20 08:00] VITALS: BP 130/50
[2020-02-20 08:05] LABS: PHOSPHORUS 4.5 mg/dL (2.5-4.9)
[2020-02-20] MEDS: FOLIC ACID/VITAMIN B COMP W-C TABLET PO SCH (10:03)
[2020-02-20] MEDS: PREDNISONE 10MG TABLET PO SCH (10:04)
[2020-02-20 12:00] VITALS: BP 115/49
[2020-02-20] MEDS ORDERED: MORPHINE SULFATE 2 MG/ML CPJ (NOT FOR IM USE) IV PRN (12:15)
[2020-02-20] MEDS: ACETAMINOPHEN 500MG TABLET PO PRN (12:22)
[2020-02-20 16:00] VITALS: BP 136/59
[2020-02-20] MEDS: SODIUM CHLORIDE 45ML SPRAY NS SCH ×2 (17:37→17:44)
[2020-02-20] MEDS: MONTELUKAST SODIUM 10MG TABLET PO SCH (17:37)
[2020-02-20] MEDS: INSULIN GLARGINE UD 100 UNITS/ML SYR SUBCUT SCH ×2 (17:41→21:54)
[2020-02-20 20:00] VITALS: BP 122/50
[2020-02-20] MEDS: FAMOTIDINE 20MG TABLET PO SCH (20:43)
[2020-02-20] MEDS: ATORVASTATIN CALCIUM 10MG TABLET PO SCH (20:43)
[2020-02-21] VITALS: BP 127/50
[2020-02-21] MEDS: ACETAMINOPHEN 500MG TABLET PO PRN ×3 (00:23→23:33)
[2020-02-21] MEDS: ALBUTEROL (0.083%) 2.5MG/3ML NEB HHN SCH ×4 (01:06→22:10)
[2020-02-21] MEDS: SODIUM CHLORIDE 45ML SPRAY NS SCH ×6 (01:33→21:07)
[2020-02-21 04:00] VITALS: BP 114/75
[2020-02-21] MEDS: BLOOD SUGAR DIAGNOSTIC STRIP TEST SCH ×4 (05:50→21:03)
[2020-02-21] MEDS: INSULIN LISPRO 100 UNITS/ML SUBCUT SCH ×4 (06:11→21:05)
[2020-02-21 06:14] LABS: BASOPHILS % 0.6 % (0.0-2.0); EOSINOPHILS % 0.5 % (0.0-5.0); HEMATOCRIT. 21.2 % (36.0-48.0); HEMOGLOBIN. 7.5 g/dL (12.0-16.0); LYMPHOCYTES % 13.7 % (20.0-50.0); MEAN CORPUSCULAR HEMOGLOBIN 34.4 pg (28.0-32.0); MEAN CORPUSCULAR VOLUME 96.8 fL (81.0-99.0); MEAN PLATELET VOLUME 9.3 fl (7.4-10.4); MONOCYTES % 8.5 % (2.0-8.0); NEUTROPHILS % 76.7 % (40.0-76.0); PLATELET 169 x1000/uL (130-400); RED CELL DISTRIBUTION WIDTH 15.9 % (11.6-14.6)
[2020-02-21 06:32] LABS: PHOSPHORUS 5.7 mg/dL (2.5-4.9)
[2020-02-21] MEDS: FOLIC ACID/VITAMIN B COMP W-C TABLET PO SCH (08:40)
[2020-02-21] MEDS: PREDNISONE 10MG TABLET PO SCH (08:40)
[2020-02-21] MEDS: INSULIN GLARGINE UD 100 UNITS/ML SYR SUBCUT SCH ×2 (11:29→21:06)
[2020-02-21 12:00] VITALS: BP 138/52
[2020-02-21 16:00] VITALS: BP 121/47
[2020-02-21] MEDS: DOCUSATE SODIUM 100MG CAPSULE PO SCH (17:11)
[2020-02-21] MEDS: MONTELUKAST SODIUM 10MG TABLET PO SCH (17:11)
[2020-02-21 20:00] VITALS: BP 128/52
[2020-02-21] MEDS: ATORVASTATIN CALCIUM 10MG TABLET PO SCH (21:03)
[2020-02-21] MEDS: POLYETHYLENE GLYCOL 3350 (17GM) 1 DOSE PACK PO SCH (21:03)
[2020-02-21] MEDS: FAMOTIDINE 20MG TABLET PO SCH (21:03)
[2020-02-22] VITALS (7 sets, daily range): BP systolic 116–151; BP diastolic 41–98
[2020-02-22] MEDS: SODIUM CHLORIDE 45ML SPRAY NS SCH ×6 (02:00→21:29)
[2020-02-22] MEDS: ALBUTEROL (0.083%) 2.5MG/3ML NEB HHN SCH ×5 (04:14→20:00)
[2020-02-22 07:00] LABS: PHOSPHORUS 4.7 mg/dL (2.5-4.9)
[2020-02-22] MEDS: BLOOD SUGAR DIAGNOSTIC STRIP TEST SCH ×4 (07:10→21:29)
[2020-02-22 07:22] LABS: BASOPHILS % 0.5 % (0.0-2.0); EOSINOPHILS % 1.1 % (0.0-5.0); HEMATOCRIT. 24.8 % (36.0-48.0); LYMPHOCYTES % 17.7 % (20.0-50.0); MEAN CORPUSCULAR VOLUME 97.4 fL (81.0-99.0); MEAN PLATELET VOLUME 9.9 fl (7.4-10.4); MONOCYTES % 13.1 % (2.0-8.0); NEUTROPHILS % 67.6 % (40.0-76.0); PLATELET 218 x1000/uL (130-400); RED BLOOD CELL COUNT 2.55 mill/uL (4.2-5.4); RED CELL DISTRIBUTION WIDTH 15.5 % (11.6-14.6)
[2020-02-22 07:27] LABS: HEMOGLOBIN. 8.7 g/dL (12.0-16.0)
[2020-02-22] MEDS: INSULIN LISPRO 100 UNITS/ML SUBCUT SCH ×4 (07:40→21:18)
[2020-02-22] MEDS: FOLIC ACID/VITAMIN B COMP W-C TABLET PO SCH (09:04)
[2020-02-22] MEDS: PREDNISONE 10MG TABLET PO SCH (09:04)
[2020-02-22] MEDS: DOCUSATE SODIUM 100MG CAPSULE PO SCH ×2 (09:04→17:39)
[2020-02-22] MEDS: INSULIN GLARGINE UD 100 UNITS/ML SYR SUBCUT SCH ×2 (09:06→21:19)
[2020-02-22] MEDS: ACETAMINOPHEN 500MG TABLET PO PRN ×3 (09:28→15:14)
[2020-02-22] MEDS: METOPROLOL TARTRATE 25MG TABLET PO SCH ×2 (11:51→21:28)
[2020-02-22] MEDS: LACTULOSE 20G/30ML UDC PO SCH ×3 (13:00→21:24)
[2020-02-22] MEDS: AZATHIOPRINE 50MG TABLET PO SCH (15:40)
[2020-02-22] MEDS: MONTELUKAST SODIUM 10MG TABLET PO SCH (17:39)
[2020-02-22] MEDS: POLYETHYLENE GLYCOL 3350 (17GM) 1 DOSE PACK PO SCH (21:23)
[2020-02-22] MEDS: ATORVASTATIN CALCIUM 10MG TABLET PO SCH (21:24)
[2020-02-22] MEDS: FAMOTIDINE 20MG TABLET PO SCH (21:28)
[2020-02-22] MEDS: EPOETIN ALFA 10000UNITS/ML VIAL SUBCUT SCH (21:30)
[2020-02-23] VITALS: BP 130/46
[2020-02-23] MEDS: SODIUM CHLORIDE 45ML SPRAY NS SCH ×6 (02:00→21:47)
[2020-02-23] MEDS: ALBUTEROL (0.083%) 2.5MG/3ML NEB HHN SCH ×5 (02:45→21:06)
[2020-02-23 04:00] VITALS: BP_SYST 127; BP_DIAS 36; BP_DIAS 46
[2020-02-23] MEDS: BLOOD SUGAR DIAGNOSTIC STRIP TEST SCH ×4 (06:11→21:22)
[2020-02-23] MEDS: INSULIN LISPRO 100 UNITS/ML SUBCUT SCH ×4 (06:12→21:02)
[2020-02-23 06:16] VITALS: BP 127/46
[2020-02-23 06:26] LABS: BASOPHILS % 0.8 % (0.0-2.0); EOSINOPHILS % 1.4 % (0.0-5.0); HEMATOCRIT. 22.2 % (36.0-48.0); HEMOGLOBIN. 7.9 g/dL (12.0-16.0); LYMPHOCYTES % 13.6 % (20.0-50.0); MEAN CORPUSCULAR HEMOGLOBIN 34.1 pg (28.0-32.0); MEAN CORPUSCULAR VOLUME 95.8 fL (81.0-99.0); MEAN PLATELET VOLUME 9.1 fl (7.4-10.4); MONOCYTES % 13.9 % (2.0-8.0); NEUTROPHILS % 70.3 % (40.0-76.0); PLATELET 229 x1000/uL (130-400); RED BLOOD CELL COUNT 2.32 mill/uL (4.2-5.4); RED CELL DISTRIBUTION WIDTH 15.6 % (11.6-14.6)
[2020-02-23 08:00] VITALS: BP 134/46
[2020-02-23] MEDS ORDERED: FOLIC ACID 1MG TABLET PO SCH (09:00)
[2020-02-23] MEDS: METOPROLOL TARTRATE 25MG TABLET PO SCH ×2 (09:00→21:22)
[2020-02-23] MEDS: PREDNISONE 10MG TABLET PO SCH (09:27)
[2020-02-23] MEDS: AZATHIOPRINE 50MG TABLET PO SCH (09:27)
[2020-02-23] MEDS: DOCUSATE SODIUM 100MG CAPSULE PO SCH ×2 (09:27→17:54)
[2020-02-23] MEDS: FOLIC ACID/VITAMIN B COMP W-C TABLET PO SCH (09:27)
[2020-02-23] MEDS: INSULIN GLARGINE UD 100 UNITS/ML SYR SUBCUT SCH ×2 (10:42→21:47)
[2020-02-23 12:00] VITALS: BP 131/40
[2020-02-23] MEDS: ACETAMINOPHEN 500MG TABLET PO PRN (12:05)
[2020-02-23] MEDS: MONTELUKAST SODIUM 10MG TABLET PO SCH (17:54)
[2020-02-23 20:00] VITALS: BP 136/38
[2020-02-23] MEDS: ATORVASTATIN CALCIUM 10MG TABLET PO SCH (21:21)
[2020-02-23] MEDS: FAMOTIDINE 20MG TABLET PO SCH (21:22)
[2020-02-23] MEDS: POLYETHYLENE GLYCOL 3350 (17GM) 1 DOSE PACK PO SCH (21:47)
[2020-02-24] VITALS: BP 134/47
[2020-02-24] MEDS: ALBUTEROL (0.083%) 2.5MG/3ML NEB HHN SCH ×3 (01:46→20:59)
[2020-02-24] MEDS: SODIUM CHLORIDE 45ML SPRAY NS SCH ×6 (02:00→22:14)
[2020-02-24 04:00] VITALS: BP 119/46
[2020-02-24] MEDS: BLOOD SUGAR DIAGNOSTIC STRIP TEST SCH ×4 (05:42→20:08)
[2020-02-24 08:00] VITALS: BP 117/61
[2020-02-24] MEDS: INSULIN LISPRO 100 UNITS/ML SUBCUT SCH ×4 (08:38→22:16)
[2020-02-24] MEDS: DOCUSATE SODIUM 100MG CAPSULE PO SCH ×2 (09:00→17:15)
[2020-02-24] MEDS: FOLIC ACID/VITAMIN B COMP W-C TABLET PO SCH (09:31)
[2020-02-24] MEDS: PREDNISONE 10MG TABLET PO SCH (09:31)
[2020-02-24] MEDS: AZATHIOPRINE 50MG TABLET PO SCH (09:31)
[2020-02-24] MEDS: METOPROLOL TARTRATE 25MG TABLET PO SCH ×2 (09:32→22:14)
[2020-02-24] MEDS: INSULIN GLARGINE UD 100 UNITS/ML SYR SUBCUT SCH ×2 (10:59→22:29)
[2020-02-24] MEDS: ACETAMINOPHEN 500MG TABLET PO PRN ×2 (11:25→17:49)
[2020-02-24] MEDS: LACTULOSE 20G/30ML UDC PO SCH ×3 (11:51→22:14)
[2020-02-24 12:00] VITALS: BP_SYST 110; BP_SYST 122; BP_DIAS 53; BP_DIAS 66
[2020-02-24 16:00] VITALS: BP 144/54
[2020-02-24] MEDS: MONTELUKAST SODIUM 10MG TABLET PO SCH (17:15)
[2020-02-24 20:00] VITALS: BP_SYST 133; BP_DIAS 47; BP_DIAS 49
[2020-02-24] MEDS: FAMOTIDINE 20MG TABLET PO SCH (22:14)
[2020-02-24] MEDS: EPOETIN ALFA 10000UNITS/ML VIAL SUBCUT SCH (22:15)
[2020-02-24] MEDS: ATORVASTATIN CALCIUM 10MG TABLET PO SCH (22:15)
[2020-02-24] MEDS: POLYETHYLENE GLYCOL 3350 (17GM) 1 DOSE PACK PO SCH (22:31)
[2020-02-25] VITALS: BP_SYST 138; BP_DIAS 46; BP_DIAS 48
[2020-02-25] MEDS: ACETAMINOPHEN 500MG TABLET PO PRN ×4 (00:32→22:19)
[2020-02-25] MEDS: ALBUTEROL (0.083%) 2.5MG/3ML NEB HHN SCH ×3 (01:41→20:10)
[2020-02-25 04:00] VITALS: BP 130/47
[2020-02-25] MEDS: BLOOD SUGAR DIAGNOSTIC STRIP TEST SCH ×4 (05:31→21:00)
[2020-02-25] MEDS: SODIUM CHLORIDE 45ML SPRAY NS SCH ×6 (05:37→23:05)
[2020-02-25] MEDS: INSULIN LISPRO 100 UNITS/ML SUBCUT SCH ×4 (05:43→22:24)
[2020-02-25 06:49] LABS: HEMATOCRIT. 21.7 % (36.0-48.0); HEMOGLOBIN. 7.6 g/dL (12.0-16.0); MEAN CORPUSCULAR HEMOGLOBIN 34.2 pg (28.0-32.0); MEAN CORPUSCULAR VOLUME 97.1 fL (81.0-99.0); MEAN PLATELET VOLUME 8.5 fl (7.4-10.4); PLATELET 298 x1000/uL (130-400); RED BLOOD CELL COUNT 2.23 mill/uL (4.2-5.4); RED CELL DISTRIBUTION WIDTH 15.9 % (11.6-14.6)
[2020-02-25 07:46] LABS: PHOSPHORUS 5.3 mg/dL (2.5-4.9)
[2020-02-25 08:00] VITALS: BP 158/52
[2020-02-25] MEDS: FOLIC ACID/VITAMIN B COMP W-C TABLET PO SCH (09:39)
[2020-02-25] MEDS: DOCUSATE SODIUM 100MG CAPSULE PO SCH ×2 (09:39→17:35)
[2020-02-25] MEDS: INSULIN GLARGINE UD 100 UNITS/ML SYR SUBCUT SCH ×2 (10:00→23:05)
[2020-02-25] MEDS: PREDNISONE 10MG TABLET PO SCH (10:36)
[2020-02-25] MEDS: AZATHIOPRINE 50MG TABLET PO SCH (11:31)
[2020-02-25 12:00] VITALS: BP 125/59
[2020-02-25 12:29] LABS: PLATELET ESTIMATE NORMAL
[2020-02-25] MEDS ORDERED: NA PHOS,M-B/NA PHOS,DI-BA ENEMA 118ML PR NR (13:30)
[2020-02-25] MEDS ORDERED: BISACODYL 10MG SUPP PR PRN (13:30)
[2020-02-25 16:00] VITALS: BP 150/56
[2020-02-25] MEDS: MONTELUKAST SODIUM 10MG TABLET PO SCH (17:35)
[2020-02-25 20:00] VITALS: BP 116/42
[2020-02-25] MEDS: ATORVASTATIN CALCIUM 10MG TABLET PO SCH (22:00)
[2020-02-25] MEDS: FAMOTIDINE 20MG TABLET PO SCH (22:01)
[2020-02-25] MEDS: METOPROLOL TARTRATE 25MG TABLET PO SCH (22:01)
[2020-02-25] MEDS: POLYETHYLENE GLYCOL 3350 (17GM) 1 DOSE PACK PO SCH (22:03)
[2020-02-26] VITALS: BP 131/45
[2020-02-26] MEDS: ALBUTEROL (0.083%) 2.5MG/3ML NEB HHN SCH ×3 (01:45→13:42)
[2020-02-26] MEDS: SODIUM CHLORIDE 45ML SPRAY NS SCH ×6 (02:00→21:33)
[2020-02-26 04:00] VITALS: BP 133/46
[2020-02-26] MEDS: ACETAMINOPHEN 500MG TABLET PO PRN ×3 (04:32→18:15)
[2020-02-26 07:11] LABS: HEMATOCRIT. 22.2 % (36.0-48.0); HEMOGLOBIN. 7.9 g/dL (12.0-16.0); MEAN CORPUSCULAR HEMOGLOBIN 34.4 pg (28.0-32.0); MEAN CORPUSCULAR VOLUME 97.1 fL (81.0-99.0); MEAN PLATELET VOLUME 8.4 fl (7.4-10.4); PLATELET 333 x1000/uL (130-400); RED BLOOD CELL COUNT 2.29 mill/uL (4.2-5.4); RED CELL DISTRIBUTION WIDTH 16.2 % (11.6-14.6)
[2020-02-26 08:00] VITALS: BP 134/49
[2020-02-26] MEDS ORDERED: NA PHOS,M-B/NA PHOS,DI-BA ENEMA 118ML PR PRN (08:00)
[2020-02-26] MEDS: BLOOD SUGAR DIAGNOSTIC STRIP TEST SCH ×4 (08:09→20:55)
[2020-02-26] MEDS: FOLIC ACID/VITAMIN B COMP W-C TABLET PO SCH (08:43)
[2020-02-26] MEDS: DOCUSATE SODIUM 100MG CAPSULE PO SCH ×2 (08:43→18:11)
[2020-02-26] MEDS: PREDNISONE 10MG TABLET PO SCH (08:44)
[2020-02-26] MEDS: AZATHIOPRINE 50MG TABLET PO SCH (08:44)
[2020-02-26] MEDS: METOPROLOL TARTRATE 25MG TABLET PO SCH ×2 (08:47→21:32)
[2020-02-26] MEDS: INSULIN LISPRO 100 UNITS/ML SUBCUT SCH ×4 (08:54→21:38)
[2020-02-26] MEDS: INSULIN GLARGINE UD 100 UNITS/ML SYR SUBCUT SCH ×2 (10:11→21:37)
[2020-02-26 12:00] VITALS: BP 132/58
[2020-02-26 16:00] VITALS: BP 142/48
[2020-02-26] MEDS: MONTELUKAST SODIUM 10MG TABLET PO SCH (18:11)
[2020-02-26 20:00] VITALS: BP 146/60
[2020-02-26] MEDS: IPRATROPIUM/ALBUTEROL 0.5-3(2.5)MG/3ML NEB NEB PRN (20:51)
[2020-02-26] MEDS: ATORVASTATIN CALCIUM 10MG TABLET PO SCH (21:32)
[2020-02-26] MEDS: FAMOTIDINE 20MG TABLET PO SCH (21:32)
[2020-02-26] MEDS: POLYETHYLENE GLYCOL 3350 (17GM) 1 DOSE PACK PO SCH (21:35)
[2020-02-27] VITALS: BP 151/65
[2020-02-27 00:24] LABS: PLATELET ESTIMATE NORMAL
[2020-02-27] MEDS: SODIUM CHLORIDE 45ML SPRAY NS SCH ×6 (02:06→22:44)
[2020-02-27] MEDS: ACETAMINOPHEN 500MG TABLET PO PRN ×2 (02:07→10:35)
[2020-02-27] MEDS: ALBUTEROL (0.083%) 2.5MG/3ML NEB HHN SCH ×4 (02:21→20:10)
[2020-02-27] MEDS: DEXTROSE 50% WATER 50ML SYRINGE IV PRN (02:52)
[2020-02-27 04:00] VITALS: BP 138/48
[2020-02-27 07:09] LABS: EOSINOPHILS % 0.8 % (0.0-5.0); HEMATOCRIT. 22.6 % (36.0-48.0); HEMOGLOBIN. 7.9 g/dL (12.0-16.0); LYMPHOCYTES % 17.6 % (20.0-50.0); MEAN CORPUSCULAR HEMOGLOBIN 34.4 pg (28.0-32.0); MEAN CORPUSCULAR VOLUME 98.1 fL (81.0-99.0); MEAN PLATELET VOLUME 8.8 fl (7.4-10.4); NEUTROPHILS % 67.6 % (40.0-76.0); PLATELET 332 x1000/uL (130-400); RED CELL DISTRIBUTION WIDTH 16.4 % (11.6-14.6)
[2020-02-27] MEDS: BLOOD SUGAR DIAGNOSTIC STRIP TEST SCH ×4 (07:34→21:00)
[2020-02-27] MEDS: INSULIN LISPRO 100 UNITS/ML SUBCUT SCH ×4 (07:35→23:09)
[2020-02-27 08:00] VITALS: BP 140/49
[2020-02-27] MEDS: FOLIC ACID/VITAMIN B COMP W-C TABLET PO SCH (08:47)
[2020-02-27] MEDS: DOCUSATE SODIUM 100MG CAPSULE PO SCH ×2 (08:47→17:32)
[2020-02-27] MEDS: PREDNISONE 10MG TABLET PO SCH (08:47)
[2020-02-27] MEDS: METOPROLOL TARTRATE 25MG TABLET PO SCH ×2 (08:47→22:41)
[2020-02-27] MEDS: AZATHIOPRINE 50MG TABLET PO SCH (08:48)
[2020-02-27] MEDS: INSULIN GLARGINE UD 100 UNITS/ML SYR SUBCUT SCH (09:00)
[2020-02-27 12:00] VITALS: BP_SYST 130; BP_SYST 133; BP_DIAS 42; BP_DIAS 75
[2020-02-27 16:00] VITALS: BP 130/43
[2020-02-27] MEDS: MONTELUKAST SODIUM 10MG TABLET PO SCH (17:32)
[2020-02-27 20:00] VITALS: BP 136/51
[2020-02-27] MEDS: FAMOTIDINE 20MG TABLET PO SCH (22:41)
[2020-02-27] MEDS: ATORVASTATIN CALCIUM 10MG TABLET PO SCH (22:42)
[2020-02-27] MEDS: POLYETHYLENE GLYCOL 3350 (17GM) 1 DOSE PACK PO SCH (22:42)
[2020-02-28] VITALS: BP 146/45
[2020-02-28] MEDS: ALBUTEROL (0.083%) 2.5MG/3ML NEB HHN SCH ×3 (01:14→12:48)
[2020-02-28 04:00] VITALS: BP 131/38
[2020-02-28] MEDS: SODIUM CHLORIDE 45ML SPRAY NS SCH ×3 (06:54→14:00)
[2020-02-28 07:16] LABS: BASOPHILS % 0.8 % (0.0-2.0); HEMATOCRIT. 24.6 % (36.0-48.0); HEMOGLOBIN. 8.7 g/dL (12.0-16.0); LYMPHOCYTES % 17.3 % (20.0-50.0); MEAN CORPUSCULAR HEMOGLOBIN 34.9 pg (28.0-32.0); MEAN CORPUSCULAR VOLUME 98.7 fL (81.0-99.0); MEAN PLATELET VOLUME 8.6 fl (7.4-10.4); MONOCYTES % 13.1 % (2.0-8.0); NEUTROPHILS % 67.8 % (40.0-76.0); PLATELET 390 x1000/uL (130-400); RED CELL DISTRIBUTION WIDTH 16.8 % (11.6-14.6)
[2020-02-28 08:00] VITALS: BP 132/46
[2020-02-28] MEDS: BLOOD SUGAR DIAGNOSTIC STRIP TEST SCH ×2 (08:18→12:00)
[2020-02-28] MEDS: PREDNISONE 10MG TABLET PO SCH (09:16)
[2020-02-28] MEDS: DOCUSATE SODIUM 100MG CAPSULE PO SCH (09:16)
[2020-02-28] MEDS: FOLIC ACID/VITAMIN B COMP W-C TABLET PO SCH (09:16)
[2020-02-28] MEDS: AZATHIOPRINE 50MG TABLET PO SCH (09:17)
[2020-02-28] MEDS: METOPROLOL TARTRATE 25MG TABLET PO SCH (09:17)
[2020-02-28] MEDS: INSULIN LISPRO 100 UNITS/ML SUBCUT SCH ×2 (09:18→12:58)
[2020-02-28] MEDS ORDERED: INSULIN GLARGINE UD 100 UNITS/ML SYR SUBCUT SCH (10:00)
[2020-02-28] MEDS: ACETAMINOPHEN 500MG TABLET PO PRN (10:47)
[2020-02-28 12:00] VITALS: BP 137/47
[2020-02-28 16:00] VITALS: BP 120/51
[2020-03-07 04:11] LABS: 25-HYDROXY VITAMIN D3 29 ng/mL (.)
[2020-03-16] MEDS ORDERED: LANTUSUD SUBCUT (09:35)
[2020-03-16] MEDS ORDERED: MONT10TA21 PO (09:35)
[2020-03-16] MEDS ORDERED: PRED10TA PO (09:35)
[2020-03-16] MEDS ORDERED: INSLIS SUBCUT ×2 (09:35)
[2020-03-16] MEDS ORDERED: FAMO20TA8 PO (09:35)
[2020-03-16] MEDS ORDERED: METO25TA6 PO (09:35)
== END 2020-02-28 17:06 | DRG 871 ==
LOC: ER 18:36 → MICUSO 21:43 → CANRESERV 23:05 → ENRESERV 23:05 → 7WST 02-18 01:19 → 8WST 02-19 13:20 → 6EST 02-25 08:48
PROVIDERS: ADMIT Internal Medicine; ATTEND Internal Medicine
PROC: 5A09357 Assistance with Respiratory Ventilation, Less than 24 Consecutive Hours, Continuous Positive Airway Pressure (ICD-10-PCS; 2020-02-17)
PROC: 5A1D70Z Performance of Urinary Filtration, Intermittent, Less than 6 Hours Per Day (ICD-10-PCS; principal; 2020-02-18)
PROC: 5A1D70Z Performance of Urinary Filtration, Intermittent, Less than 6 Hours Per Day (ICD-10-PCS; 2020-02-21)
PROC: 5A1D70Z Performance of Urinary Filtration, Intermittent, Less than 6 Hours Per Day (ICD-10-PCS; 2020-02-23)
PROC: 5A1D70Z Performance of Urinary Filtration, Intermittent, Less than 6 Hours Per Day (ICD-10-PCS; 2020-02-25)
PROC: 5A1D70Z Performance of Urinary Filtration, Intermittent, Less than 6 Hours Per Day (ICD-10-PCS; 2020-02-28)
DX: A41.9 Sepsis, unspecified organism (principal); J96.01 Acute respiratory failure with hypoxia; N18.6 End stage renal disease; J69.0 Pneumonitis due to inhalation of food and vomit; S32.10XA Unspecified fracture of sacrum, initial encounter for closed fracture; S32.9XXA Fracture of unspecified parts of lumbosacral spine and pelvis, initial encounter for closed fracture; J44.0 Chronic obstructive pulmonary disease with (acute) lower respiratory infection; J44.1 Chronic obstructive pulmonary disease with (acute) exacerbation; S32.592A Other specified fracture of left pubis, initial encounter for closed fracture; E87.2 Acidosis; N25.81 Secondary hyperparathyroidism of renal origin; I47.2 Ventricular tachycardia; N13.2 Hydronephrosis with renal and ureteral calculous obstruction; I12.0 Hypertensive chronic kidney disease with stage 5 chronic kidney disease or end stage renal disease; E78.5 Hyperlipidemia, unspecified; E11.22 Type 2 diabetes mellitus with diabetic chronic kidney disease; D53.9 Nutritional anemia, unspecified; E87.5 Hyperkalemia; E11.65 Type 2 diabetes mellitus with hyperglycemia; R04.0 Epistaxis; K31.84 Gastroparesis; E78.00 Pure hypercholesterolemia, unspecified; M06.9 Rheumatoid arthritis, unspecified; D63.1 Anemia in chronic kidney disease; Z20.828 Contact with and (suspected) exposure to other viral communicable diseases; R26.9 Unspecified abnormalities of gait and mobility; G90.8 Other disorders of autonomic nervous system; E11.43 Type 2 diabetes mellitus with diabetic autonomic (poly)neuropathy; E86.9 Volume depletion, unspecified; K59.00 Constipation, unspecified; Z99.2 Dependence on renal dialysis; Z88.5 Allergy status to narcotic agent; Z88.8 Allergy status to other drugs, medicaments and biological substances; Z79.1 Long term (current) use of non-steroidal anti-inflammatories (NSAID); Z79.4 Long term (current) use of insulin; Z79.899 Other long term (current) drug therapy; Z83.3 Family history of diabetes mellitus; Z82.49 Family history of ischemic heart disease and other diseases of the circulatory system; W18.39XA Other fall on same level, initial encounter; Y93.89 Activity, other specified; Y99.8 Other external cause status; Y92.009 Unspecified place in unspecified non-institutional (private) residence as the place of occurrence of the external cause
CPT/HCPCS: 36415; 36600; 71045; 71275; 72190; 74176; 80048; 80053; 80061; 80305; 82010; 82270; 82306; 82375; 82550; 82553; 82607; 82728; 82746; 82805; 82962; 83036; 83540; 83550; 83605; 83735; 83880; 84100; 84132; 84443; 84484; 85025; 85379; 87635; 92610; 93005; 93306; 93970; 94640; 94660; 97110; 97162; 97166; 97530; 97535; 99291; J0885; J1815; J2270; J2405; J2543; J7030; J7060; J7500; J7512; Q9967

== ENCOUNTER 2020-06-13 18:58 | Emergency (ER) | payer OTHER ==
[~2020-06-13] VITALS: Ht 160 cm; Wt 50.0 kg
[~2020-06-13 18:58] MED LIST changes: -AMLO10TA80 PO; -DOCU50CA11 MT; -FURO80TA87 MT; -HYDR100T26 MT; -INSU100I28 SQ; +LANTUSUD SUBCUT; -METO25TA6 MT; +METO25TA6 PO; -MONT10TA21 MT; +MONT10TA21 PO; +PRED10TA PO; -PRED5TAB PO
[2020-06-13 19:01] VITALS: BP 145/76
[2020-07-12] MEDS ORDERED: ESOM20CA PO (12:31)
[2020-07-13] MEDS ORDERED: HYDR-4135 PO (09:11)
[2020-07-13] MEDS ORDERED: DOCU-138 MT (09:12)
[2020-07-13] MEDS ORDERED: BUDE6HFA INH (10:02)
== END 2020-06-13 19:54 | disposition left against medical advice (07) ==
LOC: ER 18:58
DX: J44.1 Chronic obstructive pulmonary disease with (acute) exacerbation (principal); I13.2 Hypertensive heart and chronic kidney disease with heart failure and with stage 5 chronic kidney disease, or end stage renal disease; N18.6 End stage renal disease; I50.9 Heart failure, unspecified; E78.00 Pure hypercholesterolemia, unspecified; Z99.2 Dependence on renal dialysis; Z88.5 Allergy status to narcotic agent; Z53.21 Procedure and treatment not carried out due to patient leaving prior to being seen by health care provider; Z88.8 Allergy status to other drugs, medicaments and biological substances; Z79.899 Other long term (current) drug therapy; Z98.890 Other specified postprocedural states
CPT/HCPCS: 99283

== ENCOUNTER 2020-06-18 16:44 | Emergency (ER) | payer OTHER ==
[~2020-06-18] VITALS: Ht 157.5 cm; Wt 52.0 kg
[2020-06-18 16:51] VITALS: BP 98/64
== END 2020-06-18 18:41 | disposition home or self-care (01) ==
LOC: ER 16:44
DX: R06.02 Shortness of breath (principal); Z53.21 Procedure and treatment not carried out due to patient leaving prior to being seen by health care provider

== ENCOUNTER 2020-06-29 18:51 | Emergency (ER) | payer OTHER ==
[~2020-06-29] VITALS: Ht 162.6 cm; Wt 61.0 kg
[2020-06-29 18:58] VITALS: BP 80/40
[2020-06-29] MEDS ORDERED: SODIUM CHLORIDE 0.9% 1,000 ML IV ONE (19:30)
== END 2020-06-29 21:45 | disposition left against medical advice (07) ==
LOC: ER 18:51
DX: R06.02 Shortness of breath (principal); R09.02 Hypoxemia; E11.22 Type 2 diabetes mellitus with diabetic chronic kidney disease; I12.0 Hypertensive chronic kidney disease with stage 5 chronic kidney disease or end stage renal disease; N18.6 End stage renal disease; J44.9 Chronic obstructive pulmonary disease, unspecified; M06.9 Rheumatoid arthritis, unspecified; Z20.828 Contact with and (suspected) exposure to other viral communicable diseases; Z88.5 Allergy status to narcotic agent; Z99.2 Dependence on renal dialysis; Z79.4 Long term (current) use of insulin
CPT/HCPCS: 93005; 99283; J7030

== ENCOUNTER 2020-08-10 17:58 | Inpatient (IN) | payer OTHER ==
[~2020-08-10] VITALS: Ht 160 cm; Wt 49.9 kg
[~2020-08-10 17:58] MED LIST changes: +BUDE6HFA INH; +DOCU-138 MT; +ESOM20CA PO; +HYDR-4135 PO; -PRED10TA PO
[2020-08-10 18:51] LABS: BASOPHILS % 0.7 % (0.0-2.0); EOSINOPHILS % 0.1 % (0.0-5.0); HEMATOCRIT. 31.6 % (36.0-48.0); HEMOGLOBIN. 10.6 g/dL (12.0-16.0); LYMPHOCYTES % 7.7 % (20.0-50.0); MEAN PLATELET VOLUME 9.5 fl (7.4-10.4); MONOCYTES % 8.2 % (2.0-8.0); NEUTROPHILS % 83.3 % (40.0-76.0); PLATELET 214 x1000/uL (130-400); RED BLOOD CELL COUNT 3.23 mill/uL (4.2-5.4); RED CELL DISTRIBUTION WIDTH 14.1 % (11.6-14.6)
[2020-08-10 18:57] LABS: CHLORIDE 97 mEq/L (98-107)
[2020-08-10 19:07] LABS: PROTHROMBIN TIME 10.7 sec (9.6-11.0)
[2020-08-10] MEDS ORDERED: INSULIN REGULAR (HUMULIN R) 300UNITS/3ML VIAL IV ONE (19:30)
[2020-08-10] MEDS: BLOOD SUGAR DIAGNOSTIC STRIP TEST SCH (20:56)
[2020-08-10] MEDS ORDERED: INSULIN LISPRO 100 UNITS/ML SUBCUT SCH (21:03)
[2020-08-10] MEDS ORDERED: ACETAMINOPHEN 325MG TABLET PO PRN ×2 (21:30)
[2020-08-10] MEDS ORDERED: DEXTROSE 50% WATER 50ML SYRINGE IV PRN (21:30)
[2020-08-10] MEDS ORDERED: MAGNESIUM/ALUMINUM HYDROXIDE/SIMETHICONE 30ML UDC PO PRN (21:30)
[2020-08-10] MEDS ORDERED: ONDANSETRON HCL 4MG/2ML INJ IV PRN (21:30)
[2020-08-10] MEDS ORDERED: DIPHENHYDRAMINE 50MG/ML VIAL IV PRN (21:30)
[2020-08-10] MEDS: PREDNISONE 10MG TABLET PO SCH (21:51)
[2020-08-10] MEDS: ATORVASTATIN CALCIUM 10MG TABLET PO SCH (21:51)
[2020-08-10] MEDS: SODIUM CHLORIDE 0.9% INJ 3ML FLUSH IVF SCH (22:13)
[2020-08-10 23:00] VITALS: BP 150/55
[2020-08-11] VITALS: BP 129/43
[2020-08-11 04:00] VITALS: BP 136/42
[2020-08-11] MEDS: PANTOPRAZOLE 40MG DR TABLET PO SCH ×2 (06:45→21:22)
[2020-08-11] MEDS: BLOOD SUGAR DIAGNOSTIC STRIP TEST SCH ×4 (06:45→21:22)
[2020-08-11] MEDS: SODIUM CHLORIDE 0.9% INJ 3ML FLUSH IVF SCH ×3 (06:45→21:22)
[2020-08-11 08:00] VITALS: BP 139/46
[2020-08-11] MEDS: PREDNISONE 10MG TABLET PO SCH ×2 (08:15→08:59)
[2020-08-11] MEDS: INSULIN LISPRO 100 UNITS/ML SUBCUT SCH ×4 (08:16→21:00)
[2020-08-11] MEDS ORDERED: HYDRALAZINE HCL 50MG TABLET PO SCH (09:00)
[2020-08-11 12:00] VITALS: BP 134/44
[2020-08-11] MEDS: AZATHIOPRINE 50MG TABLET PO SCH (12:09)
[2020-08-11 16:00] VITALS: BP_SYST 121; BP_SYST 130; BP_SYST 145; BP_DIAS 46; BP_DIAS 47; BP_DIAS 52
[2020-08-11] MEDS ORDERED: MONTELUKAST SODIUM 10MG TABLET PO SCH (17:00)
[2020-08-11 20:00] VITALS: BP 128/43
[2020-08-11] MEDS: METOPROLOL TARTRATE 25MG TABLET PO SCH (21:00)
[2020-08-11] MEDS: ATORVASTATIN CALCIUM 10MG TABLET PO SCH (21:22)
[2020-08-11] MEDS ORDERED: INSULIN GLARGINE UD 100 UNITS/ML SYR SUBCUT SCH (22:00)
[2020-08-12] VITALS: BP_SYST 128; BP_SYST 147; BP_SYST 150; BP_DIAS 43; BP_DIAS 52; BP_DIAS 60
[2020-08-12 04:00] VITALS: BP 131/61
[2020-08-12] MEDS: PANTOPRAZOLE 40MG DR TABLET PO SCH (06:27)
[2020-08-12] MEDS: SODIUM CHLORIDE 0.9% INJ 3ML FLUSH IVF SCH ×2 (06:27→13:23)
[2020-08-12] MEDS: BLOOD SUGAR DIAGNOSTIC STRIP TEST SCH ×2 (06:43→12:20)
[2020-08-12] MEDS: INSULIN LISPRO 100 UNITS/ML SUBCUT SCH ×2 (07:50→12:58)
[2020-08-12 08:00] VITALS: BP 137/52
[2020-08-12] MEDS ORDERED: FOLIC ACID/VITAMIN B COMP W-C TABLET PO SCH (09:00)
[2020-08-12] MEDS: PREDNISONE 10MG TABLET PO SCH (10:03)
[2020-08-12] MEDS: METOPROLOL TARTRATE 25MG TABLET PO SCH (10:03)
[2020-08-12] MEDS: AZATHIOPRINE 50MG TABLET PO SCH (10:03)
[2020-08-12 11:12] LABS: EOSINOPHILS % 2.1 % (0.0-5.0); HEMATOCRIT. 28.2 % (36.0-48.0); HEMOGLOBIN. 9.8 g/dL (12.0-16.0); LYMPHOCYTES % 16.5 % (20.0-50.0); MEAN CORPUSCULAR HEMOGLOBIN 34.1 pg (28.0-32.0); MEAN CORPUSCULAR VOLUME 98.4 fL (81.0-99.0); MEAN PLATELET VOLUME 8.3 fl (7.4-10.4); MONOCYTES % 10.6 % (2.0-8.0); NEUTROPHILS % 69.8 % (40.0-76.0); PLATELET 199 x1000/uL (130-400); RED BLOOD CELL COUNT 2.86 mill/uL (4.2-5.4); RED CELL DISTRIBUTION WIDTH 13.9 % (11.6-14.6)
[2020-08-12 11:22] LABS: PHOSPHORUS 3.2 mg/dL (2.5-4.9)
[2020-08-12 11:28] LABS: T4 FREE 1.04 ng/dL (0.76-1.46)
[2020-08-12 12:18] VITALS: BP_SYST 119; BP_SYST 137; BP_SYST 142; BP_DIAS 47; BP_DIAS 50; BP_DIAS 72
== END 2020-08-12 15:27 | disposition home or self-care (01) | DRG 73 ==
LOC: ER 17:58 → 6WST 20:31 → ENRESERV 21:40 → 6WST 23:44
PROVIDERS: ADMIT Internal Medicine; ATTEND Internal Medicine
PROC: 5A1D70Z Performance of Urinary Filtration, Intermittent, Less than 6 Hours Per Day (ICD-10-PCS; principal; 2020-08-11)
DX: G90.8 Other disorders of autonomic nervous system (principal); N18.6 End stage renal disease; E87.1 Hypo-osmolality and hyponatremia; I12.0 Hypertensive chronic kidney disease with stage 5 chronic kidney disease or end stage renal disease; D64.9 Anemia, unspecified; E11.22 Type 2 diabetes mellitus with diabetic chronic kidney disease; E11.65 Type 2 diabetes mellitus with hyperglycemia; E78.5 Hyperlipidemia, unspecified; F17.210 Nicotine dependence, cigarettes, uncomplicated; I25.10 Atherosclerotic heart disease of native coronary artery without angina pectoris; I51.7 Cardiomegaly; I95.1 Orthostatic hypotension; J45.909 Unspecified asthma, uncomplicated; M06.30 Rheumatoid nodule, unspecified site; Z96.653 Presence of artificial knee joint, bilateral; K21.9 Gastro-esophageal reflux disease without esophagitis; Z79.899 Other long term (current) drug therapy; Z82.49 Family history of ischemic heart disease and other diseases of the circulatory system; Z99.2 Dependence on renal dialysis; Z88.5 Allergy status to narcotic agent; Z79.4 Long term (current) use of insulin
CPT/HCPCS: 36415; 71045; 80048; 80053; 82962; 83036; 83605; 83880; 84100; 84439; 84443; 84481; 84484; 85025; 93005; 99285; J1815; J7042; J7500; J7512

== ENCOUNTER 2020-10-03 14:09 | Emergency (ER) | payer OTHER ==
[~2020-10-03] VITALS: Ht 167.6 cm; Wt 55.0 kg
[2020-10-03 14:37] VITALS: BP 104/59
[2020-10-03] MEDS ORDERED: ACETAMINOPHEN 325MG TABLET PO ONE (15:00)
== END 2020-10-03 17:53 | disposition home or self-care (01) ==
LOC: ER 14:47
DX: S99.912A Unspecified injury of left ankle, initial encounter (principal); E11.22 Type 2 diabetes mellitus with diabetic chronic kidney disease; E78.00 Pure hypercholesterolemia, unspecified; I10 Essential (primary) hypertension; Z79.4 Long term (current) use of insulin; Z88.5 Allergy status to narcotic agent; Z88.9 Allergy status to unspecified drugs, medicaments and biological substances; Z79.899 Other long term (current) drug therapy; V48.6XXA Car passenger injured in noncollision transport accident in traffic accident, initial encounter; Y93.89 Activity, other specified; Y92.89 Other specified places as the place of occurrence of the external cause; Y99.8 Other external cause status
CPT/HCPCS: 71250; 73610; 99284

== ENCOUNTER 2021-09-26 14:06 | Emergency (ER) | payer OTHER ==
[~2021-09-26] VITALS: Ht 167.6 cm; Wt 60.5 kg
[~2021-09-26 14:06] MED LIST changes: -ALBU6.7H11 INH; +ALBU6.7H15 INH; -HYDR-4135 PO
[2021-09-26 16:14] VITALS: BP 116/51
== END 2021-09-26 16:05 | disposition home or self-care (01) ==
LOC: ER 15:26
DX: I12.0 Hypertensive chronic kidney disease with stage 5 chronic kidney disease or end stage renal disease (principal); E11.22 Type 2 diabetes mellitus with diabetic chronic kidney disease; D64.9 Anemia, unspecified; E78.00 Pure hypercholesterolemia, unspecified; I95.9 Hypotension, unspecified; N18.6 End stage renal disease; R07.9 Chest pain, unspecified; Z99.2 Dependence on renal dialysis; Z79.4 Long term (current) use of insulin; Z88.6 Allergy status to analgesic agent; Z88.8 Allergy status to other drugs, medicaments and biological substances; Y84.1 Kidney dialysis as the cause of abnormal reaction of the patient, or of later complication, without mention of misadventure at the time of the procedure; Y92.9 Unspecified place or not applicable
CPT/HCPCS: 93005; 99283

== ENCOUNTER 2022-09-06 15:09 | Emergency (ER) | payer OTHER ==
[~2022-09-06] VITALS: Ht 157.5 cm; Wt 45.5 kg
[~2022-09-06 15:09] MED LIST changes: +MONT-46 PO; -MONT10TA21 PO
[2022-09-06 15:12] VITALS: BP 102/64
[2022-09-06 15:41] LABS: BASOPHILS % 0.7 % (0.0-2.0); EOSINOPHILS % 0.1 % (0.0-5.0); HEMATOCRIT. 44.4 % (36.0-48.0); LYMPHOCYTES % 7.9 % (20.0-50.0); MEAN CORPUSCULAR HEMOGLOBIN 31.7 pg (28.0-32.0); MEAN CORPUSCULAR VOLUME 93.6 fL (81.0-99.0); MEAN PLATELET VOLUME 8.9 fl (7.4-10.4); MONOCYTES % 4.8 % (2.0-8.0); NEUTROPHILS % 86.5 % (40.0-76.0); PLATELET 210 x1000/uL (130-400); RED BLOOD CELL COUNT 4.74 mill/uL (4.2-5.4); RED CELL DISTRIBUTION WIDTH 17.3 % (11.6-14.6)
[2022-09-06 15:47] LABS: CHLORIDE 91 mEq/L (98-107)
== END 2022-09-06 17:15 | disposition left against medical advice (07) ==
LOC: ER 15:09
DX: R53.1 Weakness (principal)
CPT/HCPCS: 36415; 80053; 85025; 99281

== ENCOUNTER 2022-09-09 12:55 | Emergency (ER) | payer OTHER ==
[~2022-09-09] VITALS: Ht 165.1 cm; Wt 59.0 kg
[2022-09-09 14:37] LABS: BASOPHILS % 0.5 % (0.0-2.0); EOSINOPHILS % 0.1 % (0.0-5.0); HEMATOCRIT. 40.3 % (36.0-48.0); HEMOGLOBIN. 13.4 g/dL (12.0-16.0); LYMPHOCYTES % 8.6 % (20.0-50.0); MEAN CORPUSCULAR HEMOGLOBIN 31.5 pg (28.0-32.0); MEAN CORPUSCULAR VOLUME 94.2 fL (81.0-99.0); MEAN PLATELET VOLUME 9.9 fl (7.4-10.4); MONOCYTES % 4.6 % (2.0-8.0); NEUTROPHILS % 86.2 % (40.0-76.0); PLATELET 181 x1000/uL (130-400); RED BLOOD CELL COUNT 4.27 mill/uL (4.2-5.4); RED CELL DISTRIBUTION WIDTH 17.2 % (11.6-14.6)
[2022-09-09 15:40] LABS: CLARITY URINE CLEAR (CLEAR); COLOR URINE YELLOW (YELLOW); KETONES URINE TRACE (NEGATIVE); LEUKOCYTE ESTERASE URINE NEGATIVE (NEGATIVE); NITRITE URINE NEGATIVE (NEGATIVE); OCCULT BLOOD URINE NEGATIVE (NEGATIVE); PH URINE 7.5 (4.5-8.0); PROTEIN URINE 2+ (NEGATIVE); SPECIFIC GRAVITY URINE 1.015 (1.005-1.030); UROBILINOGEN URINE 0.2 E.U./dL (0.2-1.0)
[2022-09-09 16:42] LABS: CHLORIDE 95 mEq/L (98-107)
[2022-09-09 18:00] VITALS: BP 131/47
== END 2022-09-09 19:52 | disposition home or self-care (01) ==
LOC: ER 12:55
DX: R42 Dizziness and giddiness (principal); E11.22 Type 2 diabetes mellitus with diabetic chronic kidney disease; I12.0 Hypertensive chronic kidney disease with stage 5 chronic kidney disease or end stage renal disease; N18.6 End stage renal disease; E78.00 Pure hypercholesterolemia, unspecified; Z79.4 Long term (current) use of insulin; Z99.2 Dependence on renal dialysis
CPT/HCPCS: 36415; 71045; 80053; 81003; 83605; 83880; 84145; 84484; 85025; 93005; 99285

== ENCOUNTER 2022-10-28 13:38 | Emergency (ER) | payer OTHER ==
[~2022-10-28] VITALS: Ht 170.2 cm; Wt 73.0 kg
[2022-10-28 16:25] VITALS: BP 139/72
== END 2022-10-28 16:30 | disposition home or self-care (01) ==
LOC: ER 13:38
DX: R42 Dizziness and giddiness (principal); E86.1 Hypovolemia; I12.0 Hypertensive chronic kidney disease with stage 5 chronic kidney disease or end stage renal disease; E11.22 Type 2 diabetes mellitus with diabetic chronic kidney disease; N18.6 End stage renal disease; Z99.2 Dependence on renal dialysis; Z79.899 Other long term (current) drug therapy
CPT/HCPCS: 99283